=== PATIENT | male | born 1960 | race Caucasian/White ===

== ENCOUNTER 2017-02-25 21:28 | Inpatient (IN) | payer OTHER, MEDICARE ==
[~2017-02-25] VITALS: Ht 167.6 cm; Wt 61.6 kg
[~2017-02-25 21:28] MED LIST: ATOR10TA15 PO; CART120C PO; DILA100C PO; FURO20TA PO; LOSA50TA PO; METF1000 PO; POTA10CA PO
[2017-02-25] MEDS ORDERED: SODIUM CHLORIDE 0.9% FLUSH 10 ML FLUSH IVF PRN (21:45)
[2017-02-25] MEDS ORDERED: methylPREDNISolone SOD SUCC 125 MG/2 ML VIAL IVP ONE (21:45)
[2017-02-25 21:50] VITALS: O2SAT 100
[2017-02-25] MEDS: RESP: ALBUTEROL 2.5 MG/IPRATROPIUM 0.5 MG NEB (SCH) INH ×3 (21:50→22:09)
--- NOTE | 2017-02-25 22:00 | RADRPT ---
EXAM DATE/TIME: 02/25/2017 21:54 [place] COMPARISON: CHEST SINGLE AP, August 07, 2016, 10:53. INDICATIONS : Shortness of breath. MEDICAL HISTORY : Hypertension. Chronic obstructive pulmonary disease. SURGICAL HISTORY : None. ENCOUNTER: Initial ACUITY: 1 day PAIN SCORE: 0/10 LOCATION: Bilateral chest FINDINGS: A single view of the chest demonstrates the lungs to be symmetrically aerated without evidence of mas s, infiltrate or effusion. The cardiomediastinal contours are unremarkable. Osseous structures are intact. CONCLUSION: No acute disease. Colton Vides MD on February 25, 2017 at 21:58 Board Certified Radiologist. This report was verified electronically.
[2017-02-25 22:01] LABS: AUTOMATED NEUTROPHIL # 6.6 TH/MM3 (1.8-7.7); BASOPHIL # 0.4 TH/MM3 (0-0.2); BASOPHIL % 4.4 % (0.0-2.0); EOSINOPHIL # 0.1 TH/MM3 (0-0.4); EOSINOPHIL % 0.9 % (0.0-4.0); HEMO FLAGS DIFF FINAL; LYMPH % 18.1 % (9.0-44.0); LYMPHOCYTE # 1.8 TH/MM3 (1.0-4.8); MEAN CELL VOLUME 93.5 FL (80.0-100.0); MEAN CORPUSCULAR HEMOGLOBIN 29.4 PG (27.0-34.0); MEAN CORPUSCULAR HGB CONC 31.5 % (32.0-36.0); MONO % 7.9 % (0.0-8.0); NEUT % 68.7 % (16.0-70.0); PLATELET COUNT 247 TH/MM3 (150-450); RED BLOOD COUNT 3.85 MIL/MM3 (4.50-5.90); RED CELL DISTRIBUTION WIDTH 12.5 % (11.6-17.2); WHITE BLOOD COUNT 9.7 TH/MM3 (4.0-11.0)
[2017-02-25 22:10] VITALS: O2SAT 98
[2017-02-25 22:15] LABS: CHLORIDE 87 MEQ/L (98-107); SODIUM (NA) 141 MEQ/L (136-145)
--- NOTE | 2017-02-25 22:17 | PD ---
HPI Chief Complaint: Respiratory Symptoms Time Seen by Provider: 21:43 Travel History International Travel<30 days: No Contact w/Intl Traveler<30days: No Traveled to known affect area: No History of Present Illness HPI 56-year-old male complains of wheezing and shortness of breath. Patient has history of COPD and on home O2 4 L nasal cannula. Patient states that he ran out of his oxygen at home today. Patient continues to smoke until 2 days ago. Patient states that he has mild dry cough recently. Patient denies any fever chills. Patient denies any chest pain. Patient denies any fever chills. Patient denies any nausea vomiting diarrhea. Patient has history of diabetes, hypertension, seizure disorder, hyperlipidemia. PFSH Past Medical History Arthritis: No Asthma: No Autoimmune Disease: No Blood Disorders: No Anxiety: No Depression: No Heart Rhythm Problems: No Cancer: No Cardiovascular Problems: No High Cholesterol: No Chemotherapy: No Chest Pain: No Congestive Heart Failure: No COPD: Yes Cerebrovascular Accident: Yes Diabetes: Yes Diminished Hearing: No Endocrine: Yes GERD: Yes Glaucoma: No Genitourinary: No Headaches: No Hepatitis: No Hiatal Hernia: No Hypertension: Yes Immune Disorder: No Kidney Stones: No Musculoskeletal: No Neurologic: Yes (Mental Retardation) Psychiatric: No Reproductive: No Respiratory: Yes (COPD) Immunizations Current: Yes Migraines: No Myocardial Infarction: No Radiation Therapy: No Renal Failure: No Seizures: Yes Sickle Cell Disease: No Sleep Apnea: No Thyroid Disease: No Ulcer: No Past Surgical History Abdominal Surgery: No AICD: No Appendectomy: No Arteriovenous Shunt: No Body Medical Devices: brain clips Cardiac Surgery: No Cholecystectomy: No Ear Surgery: No Endocrine Surgery: No Eye Surgery: No Genitourinary Surgery: No Gynecologic Surgery: No Insulin Pump: No Joint Replacement: No Neurologic Surgery: Yes (BRAIN ANEURYSM 1990) Oral Surgery: Yes (teeth removal) Pacemaker: No Thoracic Surgery: No Other Surgery: Yes (ANEURISM CLIP TO BRAIN 1990) Social History Alcohol Use: No Tobacco Use: Yes Substance Use: Yes (marijuana) Allergies-Medications (Allergen,Severity, Reaction): Coded Allergies: No Known Allergies (Unverified , 02/25/17) Reported Meds & Prescriptions Reported Meds & Active Scripts Active Potassium Chloride ER (Potassium Chloride) 10 Meq Cap 10 Meq PO DAILY Dilantin (Phenytoin Extended) 100 Mg Cap 100 Mg PO Q8HR Furosemide 20 Mg Tab 20 Mg PO DAILY Reported Losartan (Losartan Potassium) 50 Mg Tab 50 Mg PO DAILY Cartia Xt (Diltiazem ER 24 HR) 120 Mg Caper 120 Mg PO DAILY Metformin (Metformin HCl) 1,000 Mg Tab 500 Mg PO BIDPC With meals Atorvastatin (Atorvastatin Calcium) 10 Mg Tab 10 Mg PO HS Review of Systems General / Constitutional: No: Fever Eyes: No: Visual changes HENT: No: Headaches Cardiovascular: No: Chest Pain or Discomfort Respiratory: Positive: Cough, Shortness of Breath, Wheezing Gastrointestinal: No: Abdominal Pain Genitourinary: No: Dysuria Musculoskeletal: No: Pain Skin: No Rash Neurologic: No: Weakness Psychiatric: No: Depression Endocrine: No: Polydipsia Hematologic/Lymphatic: No: Easy Bruising Physical Exam Narrative GENERAL: Well-nourished, well-developed patient. SKIN: Focused skin assessment warm/dry. HEAD: Normocephalic. EYES: No scleral icterus. No injection or drainage. NECK: Supple, trachea midline. No JVD or lymphadenopathy. CARDIOVASCULAR: Regular rate and rhythm without murmurs, gallops, or rubs. RESPIRATORY: Patient has moderate expiratory wheezes bilaterally. Decreased breath sounds bilaterally. Rhonchi at the bases. GASTROINTESTINAL: Abdomen soft, non-tender, nondistended. MUSCULOSKELETAL: No cyanosis, or edema. BACK: Nontender without obvious deformity. No CVA tenderness. Neurologic exam normal. Data Data Last Documented VS Vital Signs Date Time Temp Pulse Resp B/P Pulse Ox O2 Delivery O2 Flow Rate FiO2 02/25/17 22:10 98 Nasal Cannula 3 02/25/17 21:40 26 Orders Complete Blood Count With Diff (02/25/17 21:43) Comprehensive Metabolic Panel (02/25/17 21:43) Act Partial Throm Time (Ptt) (02/25/17 21:43) Prothrombin Time / Inr (Pt) (02/25/17 21:43) Iv Access Insert/Monitor (02/25/17 21:43) Ecg Monitoring (02/25/17 21:43) Oximetry (02/25/17 21:43) Oxygen Administration (02/25/17 21:43) Chest, Single Ap (02/25/17 21:43) Sodium Chloride 0.9% Flush (Ns Flush) (02/25/17 21:45) Methylprednisolone So Succ Inj (Solumedr (02/25/17 21:45) Albuterol-Ipratropium Neb (Duoneb Neb) (02/25/17 21:45) Ceftriaxone Inj (Rocephin Inj) (02/25/17 22:45) Azithromycin (Zithromax) (02/25/17 22:45) Labs Laboratory Tests Test 02/25/17 21:50 White Blood Count 9.7 TH/MM3 Red Blood Count 3.85 MIL/MM3 Hemoglobin 11.3 GM/DL Hematocrit 36.0 % Mean Corpuscular Volume 93.5 FL Mean Corpuscular Hemoglobin 29.4 PG Mean Corpuscular Hemoglobin 31.5 % Concent Red Cell Distribution Width 12.5 % Platelet Count 247 TH/MM3 Mean Platelet Volume 8.3 FL Neutrophils (%) (Auto) 68.7 % Lymphocytes (%) (Auto) 18.1 % Monocytes (%) (Auto) 7.9 % Eosinophils (%) (Auto) 0.9 % Basophils (%) (Auto) 4.4 % Neutrophils # (Auto) 6.6 TH/MM3 Lymphocytes # (Auto) 1.8 TH/MM3 Monocytes # (Auto) 0.8 TH/MM3 Eosinophils # (Auto) 0.1 TH/MM3 Basophils # (Auto) 0.4 TH/MM3 CBC Comment DIFF FINAL Differential Comment Prothrombin Time 10.5 SEC Prothromb Time International 1.0 RATIO Ratio Activated Partial 28.0 SEC Thromboplast Time Sodium Level 141 MEQ/L Potassium Level 4.0 MEQ/L Chloride Level 87 MEQ/L Blood Urea Nitrogen 19 MG/DL Creatinine 1.00 MG/DL Estimat Glomerular Filtration 77 ML/MIN Rate Random Glucose 194 MG/DL Calcium Level 9.3 MG/DL Total Bilirubin 0.2 MG/DL Aspartate Amino Transf 15 U/L (AST/SGOT) Alanine Aminotransferase 17 U/L (ALT/SGPT) Alkaline Phosphatase 117 U/L Total Protein 8.0 GM/DL Albumin 2.9 GM/DL [facility] Medical Decision Making Medical Screen Exam Complete: Yes Emergency Medical Condition: Yes Differential Diagnosis Differential diagnosis including acute exacerbation COPD, bronchitis, pneumonia , PE, pneumothorax. Narrative Course 56-year-old male with shortness of breath. History of COPD. Albuterol with Atrovent unit dose treatment 3. Solu-Medrol 125 mg IV. Rocephin 1 g IV. Zithromax 500 mg by mouth. Diagnosis Primary Impression: COPD with acute exacerbation Bert Case MD Feb 25, 2017 22:17
[2017-02-25 22:19] LABS: BLOOD UREA NITROGEN 19 MG/DL (7-18)
[2017-02-25 22:21] LABS: ALT (GPT) 17 U/L (12-78)
[2017-02-25 22:22] LABS: AST (GOT) 15 U/L (15-37); GLOMERULAR FILTRATION RATE 77 ML/MIN (>89)
[2017-02-25 22:24] LABS: ALKALINE PHOSPHATASE 117 U/L (45-117); PROTHROMBIN TIME - PATIENT 10.5 SEC (9.8-11.6)
[2017-02-25 22:27] LABS: TOTAL BILIRUBIN ADULT 0.2 MG/DL (0.2-1.0)
[2017-02-25] MEDS ORDERED: SENNOSIDES 8.6 MG TAB PO PRN (22:45)
[2017-02-25] MEDS ORDERED: RESP: ALBUTEROL 2.5 MG/3 ML NEB (PRN) INH (22:45)
[2017-02-25] MEDS ORDERED: BISACODYL 10 MG SUPP RECTAL PRN (22:45)
[2017-02-25] MEDS ORDERED: SODIUM CHLORIDE 0.9% FLUSH 10 ML FLUSH IV FLUSH PRN (22:45)
[2017-02-25] MEDS ORDERED: NALOXONE HCL 0.4 MG/ML AMP IV PRN (22:45)
[2017-02-25] MEDS ORDERED: ACETAMINOPHEN 325 MG TAB PO PRN (22:45)
[2017-02-25] MEDS ORDERED: LACTULOSE SYRUP 20 GM/30 ML CUP PO PRN (22:45)
[2017-02-25] MEDS ORDERED: ONDANSETRON HCL 4 MG/2 ML VIAL IVP PRN (22:45)
[2017-02-25] MEDS ORDERED: cefTRIAXone INJ 1,000 MG in SODIUM CHLORIDE 0.9% INJ 100 ML IV ONE (22:45)
[2017-02-25] MEDS ORDERED: AZITHROMYCIN 250 MG TAB PO ONE (22:45)
[2017-02-25] MEDS ORDERED: MAGNESIUM HYDROXIDE SUSP 30 ML CUP PO PRN (22:45)
[2017-02-25 22:46] LABS: ANION GAP 1 MEQ/L (5-15); BICARBONATE 52.7 MEQ/L (21.0-32.0)
[2017-02-25 23:11] VITALS: BP 160/79; PULSE 103; RESP 18; O2SAT 96
[2017-02-26] VITALS (12 sets, daily range): BP systolic 154–186; BP diastolic 73–99; PULSE 88–104; RESP 20–31; TEMP 98–98.7; O2SAT 90–98
[2017-02-26] MEDS: methylPREDNISolone SOD SUCC 125 MG/2 ML VIAL IVP SCH ×3 (03:53→21:02)
[2017-02-26] MEDS: RESP: ALBUTEROL 2.5 MG/IPRATROPIUM 0.5 MG NEB (SCH) INH ×4 (03:55→21:37)
[2017-02-26] MEDS ORDERED: cloNIDine HCL 0.1 MG TAB PO ONE (05:00)
[2017-02-26 06:08] LABS: AUTOMATED NEUTROPHIL # 6.5 TH/MM3 (1.8-7.7); BASOPHIL % 0.1 % (0.0-2.0); EOSINOPHIL % 0.1 % (0.0-4.0); HEMATOCRIT 33.9 % (39.0-51.0); HEMO FLAGS DIFF FINAL; LYMPH % 9.9 % (9.0-44.0); LYMPHOCYTE # 0.7 TH/MM3 (1.0-4.8); MEAN CELL VOLUME 93.1 FL (80.0-100.0); MEAN CORPUSCULAR HEMOGLOBIN 29.9 PG (27.0-34.0); MEAN CORPUSCULAR HGB CONC 32.1 % (32.0-36.0); MONO % 0.7 % (0.0-8.0); NEUT % 89.2 % (16.0-70.0); PLATELET COUNT 233 TH/MM3 (150-450); RED BLOOD COUNT 3.64 MIL/MM3 (4.50-5.90); RED CELL DISTRIBUTION WIDTH 12.4 % (11.6-17.2); WHITE BLOOD COUNT 7.3 TH/MM3 (4.0-11.0)
[2017-02-26 06:20] LABS: POTASSIUM 3.9 MEQ/L (3.5-5.1)
[2017-02-26 06:47] LABS: BICARBONATE 51.6 MEQ/L (21.0-32.0)
[2017-02-26] MEDS: SODIUM CHLORIDE 0.9% FLUSH 10 ML FLUSH IV FLUSH SCH ×2 (10:22→21:02)
[2017-02-26] MEDS: DOCUSATE SODIUM 50 MG/SENNA 8.6 MG TAB PO SCH ×2 (10:22→21:03)
--- NOTE | 2017-02-26 11:40 | HHI.HP ---
[facility] Service [facility] Primary Care Physician Non-Staff Admission Diagnosis acute exacerbation COPD Diagnoses: (1) Acute on chronic respiratory failure with hypoxia and hypercapnia Diagnosis: Principal (2) Acute exacerbation of chronic obstructive pulmonary disease (COPD) Diagnosis: Principal (3) Diabetes mellitus Diagnosis: Secondary (4) Hypertension Diagnosis: Secondary Chief Complaint: Wheeze and shortness of breath Travel History International Travel<30 Days: No Contact w/Intl Traveler <30 Da: No Traveled to Known Affected Are: No History of Present Illness Written by Amor Gallegos, acting as scribe for Dr. Albrecht on 02/26/17 at 13: 41. This note was transcribed by scribe Amor AKHTAR. I, Dr. Sofia Albrecht personally performed the history, physical exam, and medical decision making; and confirmed the accuracy of the information in the transcribed note. Authenticated by Dr. Sofia Albrecht on 02/26/17 at 13:41. 56-year-old with known history of chronic respiratory failure oxygen dependent, chronic tobacco use, hypertension, developed mental delay, gouty arthritis who presented to hospital with shortness of breath and dyspnea. Patient was able to get majority information, however on details he is very vague. According to him and is been 2 months that he is started back smoking again and when he started back smoking he stopped using his oxygen. He states that he does get intermittent shortness of breath, dyspnea, wheeze. Has been progressively getting worse over the last week. He states that he does have a suspender maker however he does not know his name. He states he does have a nebulizer machine that he has been using on a regular basis. Patient was brought to the emergency department for evaluation. Patient was found to have severe COPD and hypoxia. Patient was recommended admission for management. At the time evaluating the patient he states that he is much better. He wants to go home. He states that he does have oxygen at home. Review of Systems Respiratory: COMPLAINS OF: Wheezing, Shortness of breath Except as stated in HPI: all other systems reviewed are Neg Past Family Social History Past Medical History Chronic hypoxic, hypercapnic respiratory failure, oxygen dependent Diabetes mellitus type II Hypertension Chronic obstructive pulmonary disease Chronic tobacco use History of seizures History of developmental delay History of CVA Gastroesophageal reflux Past Surgical History Brain aneurysm clipping 1990 Tooth extraction Sinus surgery Craniotomy Reported Medications Reported Meds & Active Scripts Active Potassium Chloride ER (Potassium Chloride) 10 Meq Cap 10 Meq PO DAILY Dilantin (Phenytoin Extended) 100 Mg Cap 100 Mg PO Q8HR Furosemide 20 Mg Tab 20 Mg PO DAILY Reported Losartan (Losartan Potassium) 50 Mg Tab 50 Mg PO DAILY Cartia Xt (Diltiazem ER 24 HR) 120 Mg Caper 120 Mg PO DAILY Metformin (Metformin HCl) 1,000 Mg Tab 500 Mg PO BIDPC With meals Atorvastatin (Atorvastatin Calcium) 10 Mg Tab 10 Mg PO HS Allergies: Coded Allergies: No Known Allergies (Unverified , 02/25/17) Family History Reviewed is significant for father having cancer Social History Patient states that he smoked a pack a cigarettes a day. He is been smoking since he was 14 years old with intermittent times of discontinuation. Patient denies any alcohol use. He states he does smoke marijuana daily Physical Exam Vital Signs Vital Signs Date Time Temp Pulse Resp B/P Pulse Ox O2 Delivery O2 Flow Rate FiO2 02/26/17 10:00 94 28 157/79 93 02/26/17 09:59 93 Nasal Cannula 3.00 02/26/17 08:00 94 02/26/17 08:00 98.1 88 26 168/99 96 02/26/17 06:00 92 26 181/92 94 02/26/17 03:52 98.7 94 20 186/87 95 02/26/17 01:45 97 Nasal Cannula 3.00 02/26/17 01:43 98 30 173/92 98 02/26/17 01:43 98 02/26/17 01:35 98 02/26/17 01:35 98.6 98 24 179/98 97 02/26/17 01:01 98.3 105 18 154/73 97 Nasal Cannula 2 02/25/17 23:11 103 18 160/79 96 Nasal Cannula 4 02/25/17 22:10 98 Nasal Cannula 3 02/25/17 21:50 100 Nasal Cannula 3.00 02/25/17 21:50 100 Nasal Cannula 3.00 02/25/17 21:40 26 02/25/17 21:40 96 Nasal Cannula 3 Physical Exam GENERAL: Well-developed, well-nourished, in no acute distress. alert and orientated HEENT: Head is normocephalic without any lesions or masses noted. Facial features are symmetric. Eyes: Pupils equal round reactive to light. Extraocular muscles are intact. Conjunctivae were clear. Oropharyngeal: Pharynx without any erythema edema. Tongue is midline without deviation. Buccal mucosa is moist without any masses or lesions NECK: Supple without any masses. Trachea midline no deviation. No JVD, no bruits are appreciated CARDIAC: Regular rhythm, regular rate. S1/S2 are heard. No murmurs gallops or rubs. LUNGS: Diminished breath sounds noted throughout. Fine crackles noted. No wheeze, rhonchi. No use of accessory muscles on inspiration or expiration. ABDOMEN: Soft, nontender. Nondistended. Bowel sounds heard in all 4 quadrants. No organomegaly or masses. Negative rebound, negative guarding EXTREMITIES: No edema, pulses are equal bilaterally. No cyanosis or clubbing NEUROLOGY: Mood and affect appear appropriate. Cranial nerves II through XII grossly intact. Muscle strength 5/5 in upper and lower extremities bilaterally. Deep tendon reflexes are 2+ in upper and lower extremities bilaterally. Laboratory Laboratory Tests Test 02/25/17 02/26/17 21:50 04:17 White Blood Count 9.7 7.3 Red Blood Count 3.85 3.64 Hemoglobin 11.3 10.9 Hematocrit 36.0 33.9 Mean Corpuscular Volume 93.5 93.1 Mean Corpuscular Hemoglobin 29.4 29.9 Mean Corpuscular Hemoglobin 31.5 32.1 Concent Red Cell Distribution Width 12.5 12.4 Platelet Count 247 233 Mean Platelet Volume 8.3 8.7 Neutrophils (%) (Auto) 68.7 89.2 Lymphocytes (%) (Auto) 18.1 9.9 Monocytes (%) (Auto) 7.9 0.7 Eosinophils (%) (Auto) 0.9 0.1 Basophils (%) (Auto) 4.4 0.1 Neutrophils # (Auto) 6.6 6.5 Lymphocytes # (Auto) 1.8 0.7 Monocytes # (Auto) 0.8 0.1 Eosinophils # (Auto) 0.1 0.0 Basophils # (Auto) 0.4 0.0 CBC Comment DIFF FINAL DIFF FINAL Differential Comment Prothrombin Time 10.5 Prothromb Time International 1.0 Ratio Activated Partial 28.0 Thromboplast Time Sodium Level 141 139 Potassium Level 4.0 3.9 Chloride Level 87 86 Carbon Dioxide Level 52.7 51.6 Anion Gap 1 1 Blood Urea Nitrogen 19 19 Creatinine 1.00 0.88 Estimat Glomerular Filtration 77 89 Rate Random Glucose 194 293 Calcium Level 9.3 9.2 Total Bilirubin 0.2 Aspartate Amino Transf 15 (AST/SGOT) Alanine Aminotransferase 17 (ALT/SGPT) Alkaline Phosphatase 117 Total Protein 8.0 Albumin 2.9 Result Diagram: 02/26/1741602/26/17416 Imaging Last Impressions Chest X-Ray 02/25/172142 Signed Impressions: Service Date/Time: Saturday, February 25, 2017 21:54 - CONCLUSION: No acute disease. Colton Vides MD Assessment and Plan Assessment and Plan Acute on chronic hypoxic, hypercapnic respiratory failure with oxygen dependency Secondary to noncompliance with oxygen, chronic tobacco use Continue O2 supplementation to maintain O2 sats greater 92% Continue Solu-Medrol Continue nebulizer treatments Continue incentive spirometry/Acapella Continue Zithromax Chronic tobacco use Patient counseled on cessation Nicotine patch Hypertension, accelerated Resume home medications Clonidine/Apresoline as needed Hyperlipidemia Continue home medications Diabetes Accu-Cheks with sliding scale insulin DVT prevention Sequential compression devices Discussed Condition With patient, nurse Physician Certification 2 Midnight Certification Type: Admission for Inpatient Services Order for Inpatient Services The services are ordered in accordance with Medicare regulations or non- Medicare payer requirements, as applicable. In the case of services not specified as inpatient-only, they are appropriately provided as inpatient services in accordance with the 2-midnight benchmark. Estimated LOS (days): 2 days is the estimated time the patient will need to remain in the hospital, assuming treatment plan goals are met and no additional complications. Post-Hospital Plan: Not yet determined Problem Qualifiers (1) Hypertension: Qualified Code: I10 - Hypertension, unspecified type Amor Gallegos Feb 26, 2017 11:40 Sofia Albrecht MD Feb 26, 2017 15:07
[2017-02-26] MEDS ORDERED: cloNIDine HCL 0.1 MG TAB PO PRN (13:45)
[2017-02-26] MEDS ORDERED: GLUCAGON 1 MG/ML VIAL OTHER PRN (13:45)
[2017-02-26] MEDS ORDERED: DEXTROSE 50% IN WATER 50 ML VIAL(D50) IV PRN (13:45)
[2017-02-26] MEDS ORDERED: hydrALAZINE HCL 20 MG/ML VIAL IV PUSH PRN (13:45)
[2017-02-26] MEDS: PHENYTOIN SODIUM 100 MG CAP PO SCH ×2 (14:26→21:03)
[2017-02-26] MEDS: LOSARTAN 50 MG TAB PO SCH (14:26)
[2017-02-26] MEDS: DILTIAZEM-CD 120 MG CAP ER PO SCH (14:26)
[2017-02-26] MEDS: NICOTINE 21 MG/24 HR PATCH T-DERMAL SCH (14:26)
[2017-02-26] MEDS: FUROSEMIDE 20 MG TAB PO SCH (14:26)
[2017-02-26] MEDS: POTASSIUM CHLORIDE 10 MEQ CAP PO SCH (15:18)
[2017-02-26] MEDS: INSULIN ASPART SUPPLEMENTAL SCALE SQ SCH ×2 (15:27→21:20)
[2017-02-26] MEDS ORDERED: INSULIN ASPART 1,000 UNITS/10 ML VIAL SQ ONE (17:30)
[2017-02-26] MEDS ORDERED: ATORVASTATIN 10 MG TAB PO SCH (21:00)
[2017-02-26] MEDS ORDERED: AZITHROMYCIN INJ 500 MG in SODIUM CHLOR 0.9% 250 ML INJ 250 ML IV SCH (22:00)
[2017-02-27] VITALS: BP 145/74; PULSE 104; RESP 24; TEMP 98.2; O2SAT 96
[2017-02-27] MEDS: RESP: ALBUTEROL 2.5 MG/IPRATROPIUM 0.5 MG NEB (SCH) INH ×2 (03:40→08:58)
[2017-02-27 04:50] VITALS: BP 182/91; PULSE 96; RESP 25; TEMP 98.4; O2SAT 97
[2017-02-27 04:58] VITALS: BP 163/83; PULSE 96; RESP 24; O2SAT 94
[2017-02-27] MEDS: PHENYTOIN SODIUM 100 MG CAP PO SCH (05:01)
[2017-02-27] MEDS: INSULIN ASPART SUPPLEMENTAL SCALE SQ SCH ×2 (07:00→07:50)
[2017-02-27 08:00] VITALS: BP 138/73; PULSE 92; RESP 30; TEMP 98.5; O2SAT 97
[2017-02-27 08:59] VITALS: O2SAT 98
[2017-02-27] MEDS ORDERED: REMOVE OLD PATCH T-DERMAL SCH (09:00)
[2017-02-27] MEDS: LOSARTAN 50 MG TAB PO SCH (09:39)
[2017-02-27] MEDS: FUROSEMIDE 20 MG TAB PO SCH (09:39)
[2017-02-27] MEDS: DILTIAZEM-CD 120 MG CAP ER PO SCH (09:39)
[2017-02-27] MEDS: POTASSIUM CHLORIDE 10 MEQ CAP PO SCH (09:39)
[2017-02-27] MEDS: SODIUM CHLORIDE 0.9% FLUSH 10 ML FLUSH IV FLUSH SCH (09:39)
[2017-02-27] MEDS: DOCUSATE SODIUM 50 MG/SENNA 8.6 MG TAB PO SCH (09:39)
[2017-02-27] MEDS: NICOTINE 21 MG/24 HR PATCH T-DERMAL SCH (09:40)
[2017-02-27] MEDS: methylPREDNISolone SOD SUCC 125 MG/2 ML VIAL IVP SCH (09:45)
[2017-02-27] MEDS ORDERED: VENTAER INH (10:24)
[2017-02-27] MEDS ORDERED: PRED20 PO (10:24)
[2017-02-27] MEDS ORDERED: ALBU0.08 NEB (10:24)
[2017-02-27] MEDS ORDERED: INSPIREASE DRUG1 EA (10:24)
[2017-02-27] MEDS ORDERED: IPRASOL INH ×2 (10:24)
[2017-02-27] MEDS ORDERED: FORM20NE INH (10:24)
[2017-02-27] MEDS ORDERED: NICO21DI6 T-DERMAL (10:24)
[2017-02-27] MEDS ORDERED: IPRA17I INH (10:24)
[2017-02-27] MEDS ORDERED: NEBULIZER1 MI1 (10:24)
[2017-02-27] MEDS ORDERED: PULM180I INH (10:29)
--- NOTE | 2017-02-27 10:29 | HHI.DS ---
Discharge Summary Admission Date Feb 25, 2017 at 22:42 Discharge Date: Feb 27, 2017 Admitting Diagnosis acute exacerbation COPD (1) Acute on chronic respiratory failure with hypoxia and hypercapnia ICD Code: J96.21 Diagnosis: Principal (2) Acute exacerbation of chronic obstructive pulmonary disease (COPD) ICD Code: J44.1 Diagnosis: Principal (3) Diabetes mellitus ICD Code: 250.00 Diagnosis: Secondary (4) Hypertension ICD Code: I10 Diagnosis: Secondary Procedures none Brief History - From Admission Written by Amor Gallegos, acting as scribe for Dr. Albrecht on 02/26/17 at 13: 41. This note was transcribed by scribe Amor AKHTAR. I, Dr. Sofia Albrecht personally performed the history, physical exam, and medical decision making; and confirmed the accuracy of the information in the transcribed note. Authenticated by Dr. Sofia Albrecht on 02/26/17 at 13:41. 56-year-old with known history of chronic respiratory failure oxygen dependent, chronic tobacco use, hypertension, developed mental delay, gouty arthritis who presented to hospital with shortness of breath and dyspnea. Patient was able to get majority information, however on details he is very vague. According to him and is been 2 months that he is started back smoking again and when he started back smoking he stopped using his oxygen. He states that he does get intermittent shortness of breath, dyspnea, wheeze. Has been progressively getting worse over the last week. He states that he does have a mold setter however he does not know his name. He states he does have a nebulizer machine that he has been using on a regular basis. Patient was brought to the emergency department for evaluation. Patient was found to have severe COPD and hypoxia. Patient was recommended admission for management. At the time evaluating the patient he states that he is much better. He wants to go home. He states that he does have oxygen at home. CBC/BMP: 02/26/17 0417 02/26/17 0417 Significant Findings Laboratory Tests Test 02/25/17 02/26/17 21:50 04:17 Red Blood Count 3.85 MIL/MM3 3.64 MIL/MM3 (4.50-5.90) (4.50-5.90) Hemoglobin 11.3 GM/DL 10.9 GM/DL (13.0-17.0) (13.0-17.0) Hematocrit 36.0 % 33.9 % (39.0-51.0) (39.0-51.0) Mean Corpuscular Hemoglobin 31.5 % Concent (32.0-36.0) Basophils (%) (Auto) 4.4 % (0.0-2.0) Basophils # (Auto) 0.4 TH/MM3 (0-0.2) Chloride Level 87 MEQ/L 86 MEQ/L (98-107) (98-107) Carbon Dioxide Level 52.7 MEQ/L 51.6 MEQ/L (21.0-32.0) (21.0-32.0) Anion Gap 1 MEQ/L (5-15) 1 MEQ/L (5-15) Blood Urea Nitrogen 19 MG/DL (7-18) 19 MG/DL (7-18) Estimat Glomerular Filtration 77 ML/MIN (>89) Rate Random Glucose 194 MG/DL 293 MG/DL (74-106) (74-106) Albumin 2.9 GM/DL (3.4-5.0) Neutrophils (%) (Auto) 89.2 % (16.0-70.0) Lymphocytes # (Auto) 0.7 TH/MM3 (1.0-4.8) Imaging Last Impressions Chest X-Ray 02/25/17 7731 Signed Impressions: Service Date/Time: Saturday, February 25, 2017 21:54 - CONCLUSION: No acute disease. Colton Vides MD PE at Discharge GENERAL: Well-developed, well-nourished, in no acute distress. alert and orientated CARDIAC: Regular rhythm, regular rate. S1/S2 are heard. No murmurs gallops or rubs. LUNGS: Diminished breath sounds noted throughout. Fine crackles noted. No wheeze, rhonchi. No use of accessory muscles on inspiration or expiration. ABDOMEN: Soft, nontender. Nondistended. Bowel sounds heard in all 4 quadrants. No organomegaly or masses. Negative rebound, negative guarding EXTREMITIES: No edema, pulses are equal bilaterally. No cyanosis or clubbing NEUROLOGY: Mood and affect appear appropriate. Cranial nerves II through XII grossly intact. Muscle strength 5/5 in upper and lower extremities bilaterally. Deep tendon reflexes are 2+ in upper and lower extremities bilaterally. Pt update on day of discharge Feels improved. Says she has O2 at home. He is nor wheezing. Denies chest pain or sob. Ambulating without problems. Eating well. No cough, fever or chills. No n/v/d/c. Hospital Course Acute on chronic hypoxic, hypercapnic respiratory failure with oxygen dependency Secondary to noncompliance with oxygen, chronic tobacco use Continue O2 supplementation to maintain O2 sats greater 92% Continue Solu-Medrol Continue nebulizer treatments Continue incentive spirometry/Acapella Continue Zithromax Chronic tobacco use Patient counseled on cessation Nicotine patch Hypertension, accelerated Resume home medications Clonidine/Apresoline as needed Hyperlipidemia Continue home medications Diabetes mellitus type 2 Accu-Cheks with sliding scale insulin DVT prevention Sequential compression devices Patient improved. Patient has O2 at home however he is noncompliant, says he started smoking again and did not use O2. Discusse dwith the patient at length quitting tobacco and O2 use at home also associated with decrease mortality rate. Patient expressed understanding. Patient to follow up as OP with PCP and consultants. Advice compliance with meds , ff appointments, O2 use, quitting smoking. Pt Condition on Discharge: Stable Discharge Disposition: Disch w/ Home Health Serv Discharge Time: > 30 minutes Discharge Instructions DIET: Follow Instructions for: Heart Healthy Diet, Diabetic Diet Activities you can perform: Regular-No Restrictions Follow up Referrals: PCP Follow-up - 3-5 Days Pulmonology - 1 Week SNF/[facility]/ with [facility] Home New Medications: Albuterol 18 GM Inh (Ventolin Hfa 18 GM Inh) 90 Mcg/Act Aer 2 PUFF INH Q4H PRN SHORTNESS OF BREATH #1 Ref 0 INHALER Albuterol Neb (Albuterol Neb) 2.5 Mg/3 Ml Neb 2.5 MG NEB Q4HR NEB PRN SHORTNESS OF BREATH #60 Ref 0 NEBULE Budesonide Powder Inh (Pulmicort Flexhaler) 180 Mcg/Act Inhp 180 MCG INH Q12HR Asthma Management #1 Ref 0 INHALER Formoterol Neb (Perforomist Neb) 20 Mcg/2 Ml Neb 1 NEBULE INH BID COPD #60 Ref 0 NEBULE Ipratropium HFA 12.9 GM Inh (Atrovent HFA 12.9 GM Inh) 17 Mcg/Act Aer 2 PUFF INH Q6HR PRN SHORTNESS OF BREATH #1 Ref 0 INHALER Ipratropium-Albuterol Neb (Duoneb) 0.5-2.5 Mg/3 Ml Neb 1 NEBULE INH Q4HR NEB Breathing Treatment #180 Ref 0 NEBULE Nebulizer (Nebulizer) 1 Mis Mis 1 EA .ROUTE DIRECTED Breathing Treatment #1 Ref 0 EA Nicotine Patch (Nicoderm CQ Patch) 21 Mg/24 Hr Patch 21 MG T-DERMAL DAILY Smoking Cessation #30 Ref 0 PATCH Prednisone (Prednisone) 20 Mg Tab 20 MG PO DIRECTED 40 MG twice a day x 3 days, then 20 MG daily x 3 days, then 10 MG daily x 3 days Inflammation #11 Ref 0 TAB Spacer/Device For Mdi (Inspirease Drug Delivery) 1 Ea Mis 1 EA .ROUTE DIRECTED #1 Ref 0 EA Continued Medications: Atorvastatin (Atorvastatin) 10 Mg Tab 10 MG PO HS Cholesterol Management #30 Ref 0 TAB Diltiazem ER 24 HR (Cartia Xt) 120 Mg Caper 120 MG PO DAILY #30 Ref 0 CAP Furosemide (Furosemide) 20 Mg Tab 20 MG PO DAILY chf #30 TAB Losartan (Losartan) 50 Mg Tab 50 MG PO DAILY Blood Pressure Management #30 Ref 0 TAB Metformin (Metformin) 1,000 Mg Tab 500 MG PO BIDPC With meals Blood Sugar Management #60 Ref 0 TAB Phenytoin Extended (Dilantin) 100 Mg Cap 100 MG PO Q8HR seiz #90 CAP Potassium Chloride ER (Potassium Chloride ER) 10 Meq Cap 10 MEQ PO DAILY Electrolyte Replacement #30 Ref 0 CAP Sofia Albrecht MD Feb 27, 2017 10:29
--- NOTE | 2017-02-27 10:32 | HHI.FF ---
Face to Face Verification Diagnosis: (1) Diabetes mellitus type 2, controlled (2) Respiratory failure with hypoxia and hypercapnia (3) Tobacco use disorder (4) COPD (chronic obstructive pulmonary disease) (5) Acute exacerbation of chronic obstructive pulmonary disease (COPD) (6) Acute on chronic respiratory failure with hypoxia and hypercapnia Physical Therapy Order: Evaluate and Treat Home Health Nursing Order: Medical education Signs/symptoms of disease process Diabetic education Oxygen administration education Medication education-adverse effect Nursing assessment with vital signs I have seen patient Miguel Pimentel Jr aPwel on 02/27/17. My clinical findings support the need for the requested home health care services because: Ltd mobility - disease progression Patient has SOB I certify that my clinical findings support that this patient is homebound because: Post-op weakness Hx COPD- exertion dyspnea/weakness Sofia Albrecht MD Feb 27, 2017 10:32
[2017-02-27 12:00] VITALS: BP 168/77; PULSE 98; RESP 33; O2SAT 93
[2017-02-27] MEDS ORDERED: RESP: ALBUTEROL 2.5 MG/IPRATROPIUM 0.5 MG NEB (SCH) INH (12:00)
[2017-02-27] MEDS ORDERED: methylPREDNISolone SOD SUCC 40 MG/1 ML VIAL IV SCH (14:00)
[2017-02-27 18:26] LABS: HEMOGLOBIN A1a 1.3 %; HEMOGLOBIN A1b 2.5 %; HEMOGLOBIN Ao 81.5 %; HEMOGLOBIN LA1C 2.7 %; HEMOGLOBIN P3 4.7 %
[2017-02-28] MEDS ORDERED: POTASSIUM CHLORIDE 10 MEQ CONTROLLED RELEASE TAB PO SCH (09:00)
== END 2017-02-27 12:30 | disposition home health service (06) | DRG 190 ==
LOC: PHED 21:28 → PHEDA 22:42 → PHICU 02-26 01:18
PROVIDERS: ADMIT Hospitalist; ATTEND Hospitalist
DX: J44.1 Chronic obstructive pulmonary disease with (acute) exacerbation (principal); J96.21 Acute and chronic respiratory failure with hypoxia; R56.9 Unspecified convulsions; J96.22 Acute and chronic respiratory failure with hypercapnia; Z99.81 Dependence on supplemental oxygen; E11.9 Type 2 diabetes mellitus without complications; I10 Essential (primary) hypertension; M10.9 Gout, unspecified; R62.50 Unspecified lack of expected normal physiological development in childhood; F17.210 Nicotine dependence, cigarettes, uncomplicated; Z86.73 Personal history of transient ischemic attack (TIA), and cerebral infarction without residual deficits; K21.9 Gastro-esophageal reflux disease without esophagitis; Z79.84 Long term (current) use of oral hypoglycemic drugs; F12.90 Cannabis use, unspecified, uncomplicated; Z91.19 Patient's noncompliance with other medical treatment and regimen; E78.5 Hyperlipidemia, unspecified
CPT/HCPCS: 71010; 80048; 80053; 82948; 83036; 85025; 85610; 85730; 94150; 94640; 94664; 94667; 94668; 96374; J0456; J0696; J1815; J2930; J7050

== ENCOUNTER 2017-05-01 19:02 | Inpatient (IN) | payer OTHER, MEDICARE ==
[2017-05-01] VITALS (8 sets, daily range): BP systolic 88–139; BP diastolic 4–66; PULSE 85–94; RESP 24; TEMP 98.2; O2SAT 90–97
[~2017-05-01] VITALS: Ht 167.6 cm; Wt 63.4 kg
[~2017-05-01 19:02] MED LIST changes: +ALBU0.08 NEB; +FORM20NE INH; +INSPIREASE DRUG1 EA; +IPRA17I INH; +IPRASOL INH; +NEBULIZER1 MI1; +NICO21DI6 T-DERMAL; +PRED20 PO; +PULM180I INH; +VENTAER INH
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
[2017-05-01] MEDS ORDERED: SODIUM CHLORIDE 0.9% FLUSH 10 ML FLUSH IVF PRN (19:45)
[2017-05-01 20:08] LABS: AUTOMATED NEUTROPHIL # 4.1 TH/MM3 (1.8-7.7); BASOPHIL # 0.1 TH/MM3 (0-0.2); EOSINOPHIL # 0.1 TH/MM3 (0-0.4); EOSINOPHIL % 1.5 % (0.0-4.0); HEMATOCRIT 32.2 % (39.0-51.0); HEMO FLAGS DIFF FINAL; LYMPH % 23.9 % (9.0-44.0); LYMPHOCYTE # 1.5 TH/MM3 (1.0-4.8); MEAN CELL VOLUME 91.9 FL (80.0-100.0); MEAN CORPUSCULAR HEMOGLOBIN 28.6 PG (27.0-34.0); MEAN CORPUSCULAR HGB CONC 31.2 % (32.0-36.0); MONO % 9.4 % (0.0-8.0); NEUT % 64.2 % (16.0-70.0); PLATELET COUNT 294 TH/MM3 (150-450); RED CELL DISTRIBUTION WIDTH 13.3 % (11.6-17.2); WHITE BLOOD COUNT 6.4 TH/MM3 (4.0-11.0)
--- NOTE | 2017-05-01 20:15 | RADRPT ---
EXAM DATE/TIME: 05/01/2017 19:50 [facility] COMPARISON: CHEST SINGLE AP, February 25, 2017, 21:54. INDICATIONS : Short of breath for a few days. MEDICAL HISTORY : Chronic obstructive pulmonary disease. Aneurysm, intracranial. Seizures. Hypertension. SURGICAL HISTORY : Craniotomy. ENCOUNTER: Initial ACUITY: 2 days PAIN SCORE: 0/10 LOCATION: Bilateral chest FINDINGS: A single view of the chest demonstrates the lungs to be symmetrically aerated without evidence of mas s, infiltrate or effusion. The cardiomediastinal contours are unremarkable. Osseous structures are intact. CONCLUSION: No evidence of acute cardiopulmonary disease. Miguel Porras MD on May 01, 2017 at 20:13 Board Certified Radiologist. This report was verified electronically.
[2017-05-01 20:17] LABS: CHLORIDE 95 MEQ/L (98-107); POTASSIUM 3.8 MEQ/L (3.5-5.1); SODIUM (NA) 137 MEQ/L (136-145)
[2017-05-01 20:20] LABS: ANION GAP 6 MEQ/L (5-15); BICARBONATE 36.4 MEQ/L (21.0-32.0); MAGNESIUM 2.1 MG/DL (1.5-2.5)
[2017-05-01 20:21] LABS: BLOOD UREA NITROGEN 39 MG/DL (7-18)
[2017-05-01 20:22] LABS: APTT (PATIENT) 28.7 SEC (24.3-30.1); PROTHROMBIN TIME - PATIENT 10.5 SEC (9.8-11.6)
[2017-05-01 20:23] LABS: ALT (GPT) 15 U/L (12-78); AST (GOT) 11 U/L (15-37)
[2017-05-01 20:24] LABS: GLOMERULAR FILTRATION RATE 42 ML/MIN (>89)
[2017-05-01 20:25] LABS: TOTAL BILIRUBIN ADULT 0.3 MG/DL (0.2-1.0)
[2017-05-01 20:26] LABS: ALKALINE PHOSPHATASE 110 U/L (45-117)
[2017-05-01] MEDS ORDERED: SODIUM CHLORID 0.9% 500 ML INJ 500 ML IV ONE (20:45)
[2017-05-01 20:51] LABS: CREATINE KINASE 99 U/L (39-308)
[2017-05-01] MEDS ORDERED: IODIXANOL 320 MG/ML 10 ML VIAL (for Rad CT) IV ONE (21:05)
--- NOTE | 2017-05-01 21:23 | RADRPT ---
EXAM DATE/TIME: 05/01/2017 20:47 [facility] COMPARISON: CT THORAX W/O CONTRAST, December 21, 2015, 20:55. INDICATIONS : Shortness of breath today. IV CONTRAST: 50 cc Visipaque (iodixanol) IV RADIATION DOSE: 9.82 CTDIvol (mGy) MEDICAL HISTORY : Stroke. Chronic obstructive pulmonary disease. SURGICAL HISTORY : Craniotomy. ENCOUNTER: Initial ACUITY: 1 day PAIN SCALE: 0/10 LOCATION: Bilateral chest TECHNIQUE: Volumetric scanning of the chest was performed using a pulmonary embolism protocol MIP images were re constructed. Using automated exposure control and adjustment of the mA and/or kV according to patien t size, radiation dose was kept as low as reasonably achievable to obtain optimal diagnostic quality images. DICOM format image data is available electronically for review and comparison. Follow-up recommendations for detected pulmonary nodules are based at a minimum on nodule size and pa tient risk factors according to Fleischner Society Guidelines. FINDINGS: PULMONARY ARTERIES: No filling defects are seen in the pulmonary arteries through the segmental level. LUNGS: There is mild emphysema and mild scarring of the apices and bases. No acute pneumonia demonstrated. N o pleural effusion or pneumothorax. PLEURAE: Chronic, slightly nodular pleural thickening of the right apex. MEDIASTINUM: There is good visualization of the great vessels of the middle mediastinum. No evidence of mediastin al or hilar adenopathy/mass. MUSCULOSKELETAL: Within normal limits for patient age. MISCELLANEOUS: The visualized upper abdominal organs demonstrate no acute abnormality. CONCLUSION: 1. No pulmonary embolus or other acute abnormality. 2. Mild emphysema and scarring. Miguel Porras MD on May 01, 2017 at 21:21 Board Certified Radiologist. This report was verified electronically.
[2017-05-01] MEDS ORDERED: MAGNESIUM HYDROXIDE SUSP 30 ML CUP PO PRN (22:00)
[2017-05-01] MEDS ORDERED: SENNOSIDES 8.6 MG TAB PO PRN (22:00)
[2017-05-01] MEDS: RESP: ALBUTEROL 2.5 MG/IPRATROPIUM 0.5 MG NEB (SCH) INH (22:00)
[2017-05-01] MEDS ORDERED: ONDANSETRON HCL 4 MG/2 ML VIAL IV PUSH PRN (22:00)
[2017-05-01] MEDS ORDERED: LACTULOSE SYRUP 20 GM/30 ML CUP PO PRN (22:00)
[2017-05-01] MEDS ORDERED: ACETAMINOPHEN/HYDROcodone 325 MG/5 MG TAB PO PRN (22:00)
[2017-05-01] MEDS ORDERED: MISCELLANEOUS NURSING INFORMATION XX SCH (22:00)
[2017-05-01] MEDS ORDERED: ACETAMINOPHEN 325 MG TAB PO PRN (22:00)
[2017-05-01] MEDS ORDERED: MORPHINE SULFATE 4 MG/ML INJ IV PUSH PRN (22:00)
[2017-05-01] MEDS ORDERED: RESP: ALBUTEROL 2.5 MG/3 ML NEB (PRN) INH (22:00)
[2017-05-01] MEDS ORDERED: SODIUM CHLORIDE 0.9% FLUSH 10 ML FLUSH IV FLUSH PRN (22:00)
[2017-05-01] MEDS ORDERED: BISACODYL 10 MG SUPP RECTAL PRN (22:00)
[2017-05-01] MEDS ORDERED: CHLORHEXIDINE GLUCONATE 2 % 1 PACK (2 CLOTHS) TOP PRN (22:00)
[2017-05-01 23:33] LABS: BLOOD GAS VENOUS BASE EXCESS 8.6 mmol/L (-2-2); BLOOD GAS VENOUS HCO3 36 mmol/L (22-26); BLOOD GAS VENOUS O2 CONTENT 8.9 Vol % (9.0-17.0); BLOOD GAS VENOUS O2 HGB SAT 62 % (70-76); BLOOD GAS VENOUS PCO2 95 mmHg (44-48); BLOOD GAS VENOUS PO2 40 mmHg (35-40); BLOOD GAS VENOUS pH 7.21 (7.360-7.400); TEMP CORR TO 98.6
[2017-05-01 23:35] LABS: DRAW SITE PIV; LITER FLOW 4 L/M; OXYGEN DEVICE NASAL CANNULA
[2017-05-01 23:36] LABS: STAT NO
[2017-05-01 23:37] LABS: CRITICAL VALUE YES
[2017-05-01] MEDS: AZITHROMYCIN INJ 500 MG in SODIUM CHLOR 0.9% 250 ML INJ 250 ML IV SCH (23:46)
[2017-05-01] MEDS: SODIUM CHLOR 0.9% 1000 ML INJ 1,000 ML IV SCH (23:46)
[2017-05-01] MEDS: PHENYTOIN SODIUM 100 MG CAP PO SCH (23:47)
[2017-05-01] MEDS: methylPREDNISolone SOD SUCC 40 MG/1 ML VIAL IV PUSH SCH (23:47)
[2017-05-01] MEDS: HEPARIN SODIUM - SQ 10,000 UNITS/ML VIAL SQ SCH (23:48)
[2017-05-02] VITALS (24 sets, daily range): BP systolic 103–151; BP diastolic 56–73; PULSE 75–98; RESP 16–24; TEMP 97.4–98.5; O2SAT 82–98
[2017-05-02] MEDS: RESP: ALBUTEROL 2.5 MG/IPRATROPIUM 0.5 MG NEB (SCH) INH ×6 (02:53→23:31)
[2017-05-02] MEDS: CHLORHEXIDINE GLUCONATE 2 % 1 PACK (2 CLOTHS) TOP SCH ×2 (04:00→19:42)
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
[2017-05-02] MEDS: PHENYTOIN SODIUM 100 MG CAP PO SCH ×3 (06:04→21:12)
[2017-05-02] MEDS: HEPARIN SODIUM - SQ 10,000 UNITS/ML VIAL SQ SCH ×3 (06:05→21:12)
[2017-05-02 06:24] LABS: BLOOD GAS BASE EXCESS 6.7 mmol/L (-2-2); BLOOD GAS CARBOXYHEMOGLOBIN 1.6 % (0-4); BLOOD GAS HCO3 34 mmol/L (22-26); BLOOD GAS METHEMOGLOBIN 1.4 % (0-2); BLOOD GAS O2 HGB SATURATION 91 % (90-100); BLOOD GAS OXYGEN CONTENT 13.1 Vol % (12.0-20.0); BLOOD GAS PCO2 83 mmHg (38-42); BLOOD GAS PO2 72 mmHg (61-120); BLOOD GAS TOTAL HGB 10.1 G/DL (12.0-16.0); CRITICAL VALUE YES
[2017-05-02 06:25] LABS: DRAW SITE RT RADIAL; FIO2 40 %; OXYGEN DEVICE BiPAP
[2017-05-02 06:26] LABS: NUMBER OF ARTERIAL PUNCTURES 1; STAT NO; ULNAR PULSE PRESENT
[2017-05-02 07:33] LABS: PROTHROMBIN TIME - PATIENT 10.7 SEC (9.8-11.6)
[2017-05-02 07:42] LABS: ALKALINE PHOSPHATASE 103 U/L (45-117); ALT (GPT) 14 U/L (12-78); ANION GAP 5 MEQ/L (5-15); AST (GOT) 12 U/L (15-37); BLOOD UREA NITROGEN 38 MG/DL (7-18); CHLORIDE 99 MEQ/L (98-107); GLOMERULAR FILTRATION RATE 57 ML/MIN (>89); MAGNESIUM 2.1 MG/DL (1.5-2.5); POTASSIUM 4.8 MEQ/L (3.5-5.1); SODIUM (NA) 139 MEQ/L (136-145); TOTAL BILIRUBIN ADULT 0.3 MG/DL (0.2-1.0)
[2017-05-02] MEDS ORDERED: FORMOTEROL NEB SCH (08:00)
[2017-05-02] MEDS: SODIUM CHLORIDE 0.9% FLUSH 10 ML FLUSH IV FLUSH SCH ×2 (09:00→21:00)
[2017-05-02] MEDS ORDERED: POTASSIUM CHLORIDE 10 MEQ CAP PO SCH (09:00)
[2017-05-02] MEDS ORDERED: FUROSEMIDE 20 MG TAB PO SCH (09:00)
[2017-05-02] MEDS ORDERED: BUDESONIDE 180 MCG INH SCH (09:00)
[2017-05-02] MEDS: ARTIFICIAL TEARS OPTH SOLN 15 ML BTL EACH EYE SCH ×3 (09:31→17:15)
[2017-05-02] MEDS: PANTOPRAZOLE SOD 40 MG DELAYED RELEASE TAB PO SCH (09:31)
[2017-05-02] MEDS: methylPREDNISolone SOD SUCC 40 MG/1 ML VIAL IV PUSH SCH ×2 (09:31→21:12)
[2017-05-02] MEDS: DILTIAZEM-CD 120 MG CAP ER PO SCH (09:31)
[2017-05-02] MEDS: LOSARTAN 50 MG TAB PO SCH (09:31)
[2017-05-02] MEDS: DOCUSATE SODIUM 50 MG/SENNA 8.6 MG TAB PO SCH ×2 (09:31→21:00)
[2017-05-02] MEDS: SODIUM CHLOR 0.9% 1000 ML INJ 1,000 ML IV SCH (09:56)
[2017-05-02 12:33] LABS: BLOOD GAS BASE EXCESS 5.9 mmol/L (-2-2); BLOOD GAS HCO3 33 mmol/L (22-26); BLOOD GAS METHEMOGLOBIN 1.2 % (0-2); BLOOD GAS O2 HGB SATURATION 85 % (90-100); BLOOD GAS OXYGEN CONTENT 10.8 Vol % (12.0-20.0); BLOOD GAS PCO2 75 mmHG (38-42); BLOOD GAS PO2 58 mmHG (61-120); TEMP CORR TO 98.6
[2017-05-02 12:34] LABS: CRITICAL VALUE YES; LITER FLOW 2 L/M; OXYGEN DEVICE NASAL CANNULA
[2017-05-02 12:35] LABS: DRAW SITE LT RADIAL; NUMBER OF ARTERIAL PUNCTURES 1; STAT NO; ULNAR PULSE PRESENT
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
[2017-05-02] MEDS: AZITHROMYCIN INJ 500 MG in SODIUM CHLOR 0.9% 250 ML INJ 250 ML IV SCH (21:12)
--- NOTE | 2017-05-02 21:28 | EKG ---
Date Performed: 05/01/2017 Time Performed: 22:08:22 PTAGE: 56 years EKG: Sinus rhythm NORMAL ECG PREVIOUS TRACING : 05/01/2017 19.45 Compared to prior tracing no significant change DOCTOR: Samaria Sánchez Interpretating Date/Time 05/02/2017 21:27:11
--- NOTE | 2017-05-02 21:36 | EKG ---
Date Performed: 05/01/2017 Time Performed: 19:45:48 PTAGE: 56 years EKG: Sinus rhythm NONSPECIFIC T-WAVE ABNORMALITY BORDERLINE ECG PREVIOUS TRACING : 07/26/2016 00.16 Compared to prior tracing no significant change DOCTOR: Samaria Sánchez Interpretating Date/Time 05/02/2017 21:35:26
[2017-05-03] VITALS (25 sets, daily range): BP systolic 132–169; BP diastolic 64–88; PULSE 86–108; RESP 15–32; TEMP 97–98.4; O2SAT 88–98
[2017-05-03] MEDS: RESP: ALBUTEROL 2.5 MG/IPRATROPIUM 0.5 MG NEB (SCH) INH ×6 (03:41→23:51)
[2017-05-03] MEDS: HEPARIN SODIUM - SQ 10,000 UNITS/ML VIAL SQ SCH ×3 (06:03→21:26)
[2017-05-03] MEDS: PHENYTOIN SODIUM 100 MG CAP PO SCH ×3 (06:03→21:26)
[2017-05-03 06:42] LABS: BLOOD GAS BASE EXCESS 9.6 mmol/L (-2-2); BLOOD GAS CARBOXYHEMOGLOBIN 1.7 % (0-4); BLOOD GAS HCO3 35 mmol/L (22-26); BLOOD GAS O2 HGB SATURATION 89 % (90-100); BLOOD GAS OXYGEN CONTENT 10.6 Vol % (12.0-20.0); BLOOD GAS PCO2 61 mmHg (38-42); BLOOD GAS PO2 59 mmHg (61-120); BLOOD GAS TOTAL HGB 8.4 G/DL (12.0-16.0)
[2017-05-03 06:43] LABS: CRITICAL VALUE YES; DRAW SITE RT RADIAL; LITER FLOW 3 L/M; NUMBER OF ARTERIAL PUNCTURES 1; OXYGEN DEVICE NASAL CANNULA; STAT NO; ULNAR PULSE PRESENT
[2017-05-03] MEDS: LOSARTAN 50 MG TAB PO SCH (08:30)
[2017-05-03] MEDS: DOCUSATE SODIUM 50 MG/SENNA 8.6 MG TAB PO SCH ×2 (08:30→21:27)
[2017-05-03] MEDS: methylPREDNISolone SOD SUCC 40 MG/1 ML VIAL IV PUSH SCH (08:30)
[2017-05-03] MEDS: DILTIAZEM-CD 120 MG CAP ER PO SCH (08:30)
[2017-05-03] MEDS: PANTOPRAZOLE SOD 40 MG DELAYED RELEASE TAB PO SCH (08:30)
[2017-05-03] MEDS: SODIUM CHLORIDE 0.9% FLUSH 10 ML FLUSH IV FLUSH SCH ×2 (08:30→21:27)
[2017-05-03] MEDS: POTASSIUM CHLORIDE 10 MEQ CONTROLLED RELEASE TAB PO SCH (08:30)
[2017-05-03] MEDS: ARTIFICIAL TEARS OPTH SOLN 15 ML BTL EACH EYE SCH ×3 (08:43→18:12)
[2017-05-03] MEDS ORDERED: INFLUENZA VIRUS VACCINE (QUADRIVALENT) 0.5 ML SYR IM ONE (10:00)
--- NOTE | 2017-05-03 14:36 | HHI.PR ---
Subjective Remarks patient seen today in follow-up for COPD exacerbation and hypoxemia with respiratory failure. Overall improved. Now back on his baseline oxygen. Patient medications to be transferred to oral Objective Vitals Vital Signs Date Time Temp Pulse Resp B/P (MAP) Pulse Ox O2 Delivery O2 Flow Rate FiO2 05/03/17 13:52 97.9 99 22 162/77 (105) 92 05/03/17 13:00 100 05/03/17 12:00 94 05/03/17 11:00 96 05/03/17 10:00 98 05/03/17 09:00 104 32 169/77 (107) 92 05/03/17 09:00 104 05/03/17 08:00 97.6 90 25 162/88 (112) 96 05/03/17 08:00 Nasal Cannula 3.00 05/03/17 08:00 90 05/03/17 07:55 95 Nasal Cannula 3.00 05/03/17 07:00 86 05/03/17 07:00 86 25 150/81 (104) 93 05/03/17 06:00 88 25 140/69 (92) 92 05/03/17 06:00 88 05/03/17 05:00 96 24 150/73 (98) 94 05/03/17 04:00 98.4 92 25 135/68 (90) 92 05/03/17 04:00 92 05/03/17 03:00 90 23 135/70 (91) 88 05/03/17 02:00 92 05/03/17 02:00 92 26 141/68 (92) 92 05/03/17 01:00 96 15 134/67 (89) 90 05/03/17 00:00 98 05/03/17 00:00 98.3 98 23 132/64 (86) 91 05/02/17 23:00 94 21 122/61 (81) 92 05/02/17 22:00 96 19 103/56 (72) 93 05/02/17 22:00 96 05/02/17 20:00 98.5 96 21 132/63 (86) 92 05/02/17 20:00 92 Nasal Cannula 3.00 05/02/17 20:00 96 05/02/17 19:33 98 Nasal Cannula 3.00 05/02/17 19:00 98 20 151/72 (98) 92 05/02/17 18:00 90 24 109/60 (76) 91 05/02/17 17:00 94 23 125/59 (81) 90 05/02/17 16:00 92 05/02/17 16:00 98.3 92 23 122/61 (81) 90 05/02/17 15:37 93 Nasal Cannula 3.00 05/02/17 15:00 90 24 127/64 (85) 92 I/O 05/02/17 05/02/17 05/02/17 05/03/17 05/03/17 05/03/17 06:59 14:59 22:59 06:59 14:59 22:59 Intake Total 250 ml 960 ml Output Total 550 ml 1200 ml Balance -550 ml 250 ml -240 ml Intake Oral 960 ml IV Total 250 ml Output Urine Total 550 ml 1200 ml # Voids 2 # Bowel Movements 1 Result Diagram: 05/01/17 1945 05/02/17 0710 Imaging Last Impressions Chest X-Ray 05/01/17 1938 Signed Impressions: Service Date/Time: Monday, May 01, 2017 19:50 - CONCLUSION: No evidence of acute cardiopulmonary disease. Miguel Porras MD CT Angiography 05/01/17 0000 Signed Impressions: Service Date/Time: Monday, May 01, 2017 20:47 - CONCLUSION: 1. No pulmonary embolus or other acute abnormality. 2. Mild emphysema and scarring. Miguel Porras MD Objective Remarks GENERAL: This is a well-nourished, well-developed patient, in no apparent distress. CARDIOVASCULAR: Regular rate and rhythm without murmurs, gallops, or rubs. RESPIRATORY: Clear to auscultation. Breath sounds equal bilaterally. No wheezes , rales, or rhonchi. GASTROINTESTINAL: Abdomen soft, non-tender, nondistended. Normal active bowel sounds MUSCULOSKELETAL: Extremities without clubbing, cyanosis, or edema. 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 Moves all ext x4 A/P Problem List: (1) Hypercapnic respiratory failure ICD Code: J96.92 - Respiratory failure, unspecified with hypercapnia Status: Acute Plan: Resolved. Continued she would for COPD exacerbation (2) COPD exacerbation ICD Code: J44.1 - Chronic obstructive pulmonary disease with (acute) exacerbation Status: Acute Plan: Continue with oral antibiotics, IV steroids were changed to oral steroids today, continue bronchodilators Patient at home O2 levels Discharge Planning Discharge in a.m., transferred to [facility] Activity ad Ruby Lopez MD May 03, 2017 14:36
--- NOTE | 2017-05-03 17:42 | HHI.PR ---
Subjective Remarks 56 YOWM with COPD exac,Hypercapnoic RF Feels better Did't require CPAP On NC Mild wheezing Objective Vital Signs Vital Signs Date Time Temp Pulse Resp B/P (MAP) Pulse Ox O2 Delivery O2 Flow Rate FiO2 05/03/17 16:00 94 05/03/17 15:00 92 05/03/17 14:00 96 05/03/17 13:52 97.9 99 22 162/77 (105) 92 05/03/17 13:00 100 05/03/17 12:00 94 05/03/17 11:00 96 05/03/17 10:00 98 05/03/17 09:00 104 32 169/77 (107) 92 05/03/17 09:00 104 05/03/17 08:00 97.6 90 25 162/88 (112) 96 05/03/17 08:00 Nasal Cannula 3.00 05/03/17 08:00 90 05/03/17 07:55 95 Nasal Cannula 3.00 05/03/17 07:00 86 05/03/17 07:00 86 25 150/81 (104) 93 05/03/17 06:00 88 25 140/69 (92) 92 05/03/17 06:00 88 05/03/17 05:00 96 24 150/73 (98) 94 05/03/17 04:00 98.4 92 25 135/68 (90) 92 05/03/17 04:00 92 05/03/17 03:00 90 23 135/70 (91) 88 05/03/17 02:00 92 05/03/17 02:00 92 26 141/68 (92) 92 05/03/17 01:00 96 15 134/67 (89) 90 05/03/17 00:00 98 05/03/17 00:00 98.3 98 23 132/64 (86) 91 05/02/17 23:00 94 21 122/61 (81) 92 05/02/17 22:00 96 19 103/56 (72) 93 05/02/17 22:00 96 05/02/17 20:00 98.5 96 21 132/63 (86) 92 05/02/17 20:00 92 Nasal Cannula 3.00 05/02/17 20:00 96 05/02/17 19:33 98 Nasal Cannula 3.00 05/02/17 19:00 98 20 151/72 (98) 92 05/02/17 18:00 90 24 109/60 (76) 91 I/O 05/02/17 05/02/17 05/02/17 05/03/17 05/03/17 05/03/17 07:00 15:00 23:00 07:00 15:00 23:00 Intake Total 250 ml 960 ml Output Total 550 ml 1200 ml Balance -550 ml 250 ml -240 ml Intake Oral 960 ml IV Total 250 ml Output Urine Total 550 ml 1200 ml # Voids 2 # Bowel Movements 1 Result Diagram: 05/01/17194405/02/1710 Objective Remarks GENERAL: MBMN WM with mild sob SKIN: Warm and dry. HEAD: Normocephalic. EYES: No scleral icterus. No injection or drainage. NECK: Supple, trachea midline. No JVD or lymphadenopathy. CARDIOVASCULAR: Regular rate and rhythm without murmurs, gallops, or rubs. RESPIRATORY: Breath sounds equal bilaterally. No accessory muscle use. End exp rhonchi GASTROINTESTINAL: Abdomen soft, non-tender, nondistended. MUSCULOSKELETAL: No cyanosis, or edema. BACK: Nontender without obvious deformity. No CVA tenderness. A/P Assessment and Plan Hpercapnoic RF, improved COPD exac Hypoxia, no PE HTN PLAN: Aerosol nebs Supplement 02 Cont Abx PO steroids Stable from pulm standpoint to tr to floor. Ronny See MD May 03, 2017 17:42
[2017-05-03] MEDS: predniSONE 20 MG TAB PO SCH (21:26)
[2017-05-04] VITALS (14 sets, daily range): BP systolic 160–172; BP diastolic 80–91; PULSE 85–104; RESP 20–28; TEMP 97.5–97.8; O2SAT 85–96
[2017-05-04] MEDS: RESP: ALBUTEROL 2.5 MG/IPRATROPIUM 0.5 MG NEB (SCH) INH ×3 (03:46→10:53)
--- NOTE | 2017-05-04 05:58 | PQ ---
Physician Query Response Document PATIENT: MILY CONN : 1960 ADMIT DATE: 05/01/2017 9:56 PM DISCH DATE: RESPONDING PROVIDER #: agreene QUERY TEXT: Respiratory Failure Acuity and Type Respiratory Failure is documented in the Medical Record. Please specify the type and acuity (includes suspected or probable) Such as: -- Acute respiratory failure - With hypoxia - With hypercapnia -- Chronic respiratory failure - With hypoxia - With hypercapnia -- Acute on chronic respiratory failure - With hypoxia - With hypercapnia -- Other, please specify The patient's Clinical Indicators include: COPD EXACERBATION requiring BIPAP on admission ABD PH 7.24 pCO2 83 HC03 34 ON BIPAP 40% FIO2 WITH RESPIRTORY RATE per Pulmonology Hapercapneic and hypoxic respiratory failure on oxygen 4L at home Query created by: Natasha Adams on 05/03/2017 12:49 PM RESPONSE TEXT: The patient exhibited Acute on chronic hypoxic and hypercarbic respiratory failure. Electronically signed by: Margarito Tapia MD 05/04/2017 5:54 AM
[2017-05-04] MEDS: POTASSIUM CHLORIDE 10 MEQ CONTROLLED RELEASE TAB PO SCH (08:42)
[2017-05-04] MEDS: DILTIAZEM-CD 120 MG CAP ER PO SCH (08:42)
[2017-05-04] MEDS: PANTOPRAZOLE SOD 40 MG DELAYED RELEASE TAB PO SCH (08:42)
[2017-05-04] MEDS: LOSARTAN 50 MG TAB PO SCH (08:42)
[2017-05-04] MEDS: DOCUSATE SODIUM 50 MG/SENNA 8.6 MG TAB PO SCH (08:42)
[2017-05-04] MEDS: SODIUM CHLORIDE 0.9% FLUSH 10 ML FLUSH IV FLUSH SCH (08:43)
[2017-05-04] MEDS: predniSONE 20 MG TAB PO SCH (08:43)
[2017-05-04] MEDS: ARTIFICIAL TEARS OPTH SOLN 15 ML BTL EACH EYE SCH ×2 (08:51→12:19)
[2017-05-04] MEDS ORDERED: LEVOFLOXACIN 750 MG TAB PO SCH (09:00)
[2017-05-04] MEDS ORDERED: LEVA750T9 PO (11:04)
[2017-05-04] MEDS ORDERED: PRED20 PO (11:04)
--- NOTE | 2017-05-04 11:04 | HHI.DCPOC ---
Discharge Care Plan Diagnosis: (1) Acute exacerbation of chronic obstructive pulmonary disease (COPD) Goals to Promote Your Health * To prevent worsening of your condition and complications * To maintain your health at the optimal level Directions to Meet Your Goals Take your medications as prescribed Follow your dietary instruction Follow activity as directed Keep your appointments as scheduled Take your immunizations and boosters as scheduled If your symptoms worsen call your PCP, if no PCP go to Urgent Care Center or Emergency Room Smoking is Dangerous to Your Health. Avoid second hand smoke Call the 24-hour hour crisis hotline for domestic abuse at Ruby Madera MD May 04, 2017 11:04
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
--- NOTE | 2017-05-04 11:53 | HHI.PR ---
Subjective Remarks 56 YOWM with COPD exac,Hypercapnoic RF Feels better Did't require CPAP On NC Breathing better Objective Vital Signs Vital Signs Date Time Temp Pulse Resp B/P (MAP) Pulse Ox O2 Delivery O2 Flow Rate FiO2 05/04/17 10:00 104 05/04/17 09:00 100 05/04/17 08:03 97.5 94 26 167/91 (116) 95 05/04/17 08:00 92 05/04/17 08:00 Nasal Cannula 2.00 05/04/17 07:57 90 28 172/80 (110) 95 05/04/17 07:41 96 Nasal Cannula 3.00 05/04/17 07:00 90 05/04/17 06:00 96 05/04/17 05:00 104 05/04/17 04:00 92 05/04/17 04:00 97.5 92 22 171/81 (111) 95 05/04/17 00:00 97.7 85 22 160/81 (107) 85 05/04/17 00:00 92 05/03/17 22:00 94 05/03/17 20:00 97.8 99 29 160/73 (102) 98 05/03/17 20:00 99 05/03/17 20:00 94 Nasal Cannula 2.00 05/03/17 19:16 94 Nasal Cannula 3.00 05/03/17 18:10 97.0 98 26 149/71 (97) 95 05/03/17 18:00 100 05/03/17 17:00 108 05/03/17 16:00 94 05/03/17 15:00 92 05/03/17 14:00 96 05/03/17 13:52 97.9 99 22 162/77 (105) 92 05/03/17 13:00 100 05/03/17 12:00 94 I/O 05/03/17 05/03/17 05/03/17 05/04/17 05/04/17 05/04/17 07:00 15:00 23:00 07:00 15:00 23:00 Intake Total 960 ml 960 ml 0 ml Output Total 1200 ml 2000 ml 150 ml Balance -240 ml -1040 ml -150 ml Intake Oral 960 ml 960 ml 0 ml Output Urine Total 1200 ml 2000 ml 150 ml # Bowel Movements 1 0 Result Diagram: 05/01/17 1945 05/02/17 0710 Objective Remarks GENERAL: MBMN WM with mild sob SKIN: Warm and dry. HEAD: Normocephalic. EYES: No scleral icterus. No injection or drainage. NECK: Supple, trachea midline. No JVD or lymphadenopathy. CARDIOVASCULAR: Regular rate and rhythm without murmurs, gallops, or rubs. RESPIRATORY: Breath sounds equal bilaterally. No accessory muscle use. End exp rhonchi GASTROINTESTINAL: Abdomen soft, non-tender, nondistended. MUSCULOSKELETAL: No cyanosis, or edema. BACK: Nontender without obvious deformity. No CVA tenderness. A/P Assessment and Plan Hpercapnoic RF, improved COPD exac Hypoxia, no PE HTN PLAN: Aerosol nebs Supplement 02 Cont Abx PO steroids Stable from pulm standpoint Will FU in office 2 weeks Ronny See MD May 04, 2017 11:53
[2017-05-04] MEDS: HEPARIN SODIUM - SQ 10,000 UNITS/ML VIAL SQ SCH (14:00)
[2017-05-04] MEDS: PHENYTOIN SODIUM 100 MG CAP PO SCH (14:12)
== END 2017-05-04 15:10 | disposition home or self-care (01) | DRG 189 ==
LOC: PHED 19:02 → PHEDA 21:56 → PHICU 05-02 13:13
PROVIDERS: ADMIT Hospitalist; ATTEND Hospitalist
PROC: 5A09457 Assistance with Respiratory Ventilation, 24-96 Consecutive Hours, Continuous Positive Airway Pressure (ICD-10-PCS; principal; 2017-05-01)
DX: J96.21 Acute and chronic respiratory failure with hypoxia (principal); N17.9 Acute kidney failure, unspecified; Z99.81 Dependence on supplemental oxygen; J44.1 Chronic obstructive pulmonary disease with (acute) exacerbation; E86.0 Dehydration; J96.22 Acute and chronic respiratory failure with hypercapnia; K21.9 Gastro-esophageal reflux disease without esophagitis; I10 Essential (primary) hypertension; F79 Unspecified intellectual disabilities; F17.210 Nicotine dependence, cigarettes, uncomplicated; E11.9 Type 2 diabetes mellitus without complications; Z79.84 Long term (current) use of oral hypoglycemic drugs; Z86.73 Personal history of transient ischemic attack (TIA), and cerebral infarction without residual deficits; F12.90 Cannabis use, unspecified, uncomplicated; G40.909 Epilepsy, unspecified, not intractable, without status epilepticus
CPT/HCPCS: 36600; 71010; 71275; 80053; 80185; 82550; 82805; 83605; 83735; 84100; 84484; 85025; 85610; 85730; 87070; 87205; 87641; 93005; 94002; 94640; 94664; 96360; J0456; J1644; J2920; J7030; J7040; J7050; J7512; Q9967

== ENCOUNTER 2017-06-28 11:53 | Emergency (ER) | payer OTHER ==
[~2017-06-28] VITALS: Ht 175.3 cm; Wt 67.6 kg
[~2017-06-28 11:53] MED LIST changes: +LEVA750T9 PO
[2017-06-28] MEDS ORDERED: ALBU1.25 NEB (12:23)
[2017-06-28 12:24] VITALS: BP 104/52; PULSE 107; RESP 18; TEMP 98.1; O2SAT 82
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
[2017-06-28] MEDS ORDERED: TETANUS/DIPHTHERIA TOXOID ADULT 0.5 ML VIAL IM ONE (12:30)
[2017-06-28] MEDS ORDERED: CEPH-460 PO (12:33)
[2017-06-28] MEDS ORDERED: CEPHALEXIN MONOHYDRATE 500 MG CAP PO ONE (12:45)
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
[2017-06-28 13:32] VITALS: BP 116/64; PULSE 84; O2SAT 100
== END 2017-06-28 13:57 | disposition home or self-care (01) ==
LOC: PHED 11:53
DX: T20.29XA Burn of second degree of multiple sites of head, face, and neck, initial encounter (principal); T31.0 Burns involving less than 10% of body surface; J44.9 Chronic obstructive pulmonary disease, unspecified; E78.00 Pure hypercholesterolemia, unspecified; I10 Essential (primary) hypertension; F17.210 Nicotine dependence, cigarettes, uncomplicated; X08.8XXA Exposure to other specified smoke, fire and flames, initial encounter; Z99.81 Dependence on supplemental oxygen; Z86.73 Personal history of transient ischemic attack (TIA), and cerebral infarction without residual deficits
CPT/HCPCS: 71010; 99283

== ENCOUNTER 2017-11-07 11:16 | Emergency (ER) | payer OTHER ==
[~2017-11-07] VITALS: Ht 165.1 cm; Wt 73.0 kg
[~2017-11-07 11:16] MED LIST changes: -ALBU0.08 NEB; +ALBU1.25 NEB; +CEPH-460 PO; -IPRA17I INH; -IPRASOL INH; -LEVA750T9 PO; -NICO21DI6 T-DERMAL; -PRED20 PO; -PULM180I INH; -VENTAER INH
[2017-11-07 11:20] VITALS: BP 133/59; PULSE 110; RESP 24; TEMP 97.8; O2SAT 90
[2017-11-07] MEDS ORDERED: METF500T PO (11:44)
[2017-11-07] MEDS ORDERED: SODIUM CHLOR 0.9% 1000 ML INJ 1,000 ML IV ONE (11:45)
[2017-11-07] MEDS ORDERED: methylPREDNISolone SOD SUCC 125 MG/2 ML VIAL IV PUSH ONE (11:45)
[2017-11-07] MEDS ORDERED: SODIUM CHLORIDE 0.9% FLUSH 10 ML FLUSH IVF PRN (11:45)
[2017-11-07 11:54] VITALS: O2SAT 97
[2017-11-07] MEDS: RESP: ALBUTEROL 2.5 MG/IPRATROPIUM 0.5 MG NEB (SCH) INH ×2 (11:55→11:56)
[2017-11-07 12:00] VITALS: O2SAT 99
--- NOTE | 2017-11-07 12:05 | RADRPT ---
EXAM DATE/TIME: 11/07/2017 11:41 [facility] COMPARISON: CHEST SINGLE AP, June 28, 2017, 12:31. INDICATIONS : Short of breath MEDICAL HISTORY : Stroke. Chronic obstructive pulmonary disease SURGICAL HISTORY : Craniotomy. ENCOUNTER: Initial ACUITY: 1 day PAIN SCORE: 0/10 LOCATION: Bilateral chest FINDINGS: A single view of the chest demonstrates the lungs to be symmetrically aerated without evidence of mas s, infiltrate or effusion. There is hyperaeration with chronic interstitial changes bilaterally. The cardiomediastinal contours are unremarkable. Osseous structures are intact. No significant changes compared to the prior study. CONCLUSION: No acute disease. No significant change has occurred. Cam Rader MD on November 07, 2017 at 12:00 Board Certified Radiologist. This report was verified electronically.
[2017-11-07 12:15] LABS: AUTOMATED NEUTROPHIL # 6.9 TH/MM3 (1.8-7.7); BASOPHIL % 0.3 % (0.0-2.0); EOSINOPHIL # 0.3 TH/MM3 (0-0.4); EOSINOPHIL % 2.9 % (0.0-4.0); HEMATOCRIT 28.3 % (39.0-51.0); HEMOGLOBIN 8.9 GM/DL (13.0-17.0); LYMPH % 14.4 % (9.0-44.0); LYMPHOCYTE # 1.3 TH/MM3 (1.0-4.8); MEAN CELL VOLUME 93.8 FL (80.0-100.0); MEAN CORPUSCULAR HEMOGLOBIN 29.5 PG (27.0-34.0); MEAN CORPUSCULAR HGB CONC 31.5 % (32.0-36.0); MONOCYTE # 0.9 TH/MM3 (0-0.9); NEUT % 72.4 % (16.0-70.0); PLATELET COUNT 317 TH/MM3 (150-450); RED BLOOD COUNT 3.02 MIL/MM3 (4.50-5.90); RED CELL DISTRIBUTION WIDTH 13.8 % (11.6-17.2); WHITE BLOOD COUNT 9.4 TH/MM3 (4.0-11.0)
[2017-11-07 12:19] LABS: CHLORIDE 91 MEQ/L (98-107); SODIUM (NA) 136 MEQ/L (136-145)
[2017-11-07 12:20] VITALS: BP 196/83; PULSE 108; RESP 20; O2SAT 98
[2017-11-07 12:22] LABS: CALCIUM 9.4 MG/DL (8.5-10.1)
[2017-11-07 12:23] LABS: ALBUMIN 2.7 GM/DL (3.4-5.0); BICARBONATE 39.6 MEQ/L (21.0-32.0); BLOOD UREA NITROGEN 18 MG/DL (7-18); GLUCOSE,RANDOM 269 MG/DL (74-106); MAGNESIUM 1.6 MG/DL (1.5-2.5)
[2017-11-07 12:26] LABS: ALT (GPT) 8 U/L (12-78); AST (GOT) 5 U/L (15-37); GLOMERULAR FILTRATION RATE 52 ML/MIN (>89)
[2017-11-07 12:28] LABS: TOTAL BILIRUBIN ADULT 0.3 MG/DL (0.2-1.0); TOTAL PROTEIN 8.1 GM/DL (6.4-8.2)
[2017-11-07 12:29] LABS: ALKALINE PHOSPHATASE 120 U/L (45-117)
[2017-11-07 12:31] LABS: TROPONIN I LESS THAN 0.02 NG/ML (0.02-0.05)
--- NOTE | 2017-11-07 12:56 | PD ---
HPI Chief Complaint: Respiratory Distress Time Seen by Provider: 11:35 Travel History International Travel<30 days: No Contact w/Intl Traveler<30days: No Traveled to known affect area: No History of Present Illness HPI The patient's 56 and complains of shortness of breath. He's had it for about a week now. Productive cough is reported. This morning the patient became quite dyspneic prompting his evaluation here. He reports minimal chest pain on the right side. PFSH Past Medical History Arthritis: No Asthma: No Autoimmune Disease: No Blood Disorders: No Anxiety: No Depression: No Heart Rhythm Problems: No Cancer: No Cardiovascular Problems: No High Cholesterol: Yes Chemotherapy: No Chest Pain: No Congestive Heart Failure: No COPD: Yes (all the time oxygen) Cerebrovascular Accident: Yes Coronary Artery Disease: No Diabetes: Yes Patient Takes Glucophage: Yes Diminished Hearing: No Endocrine: Yes Gastrointestinal Disorders: No GERD: Yes Glaucoma: No Genitourinary: No Headaches: No Hepatitis: No Hiatal Hernia: No Heparin Induced Thrombocytopen: No Hypertension: Yes (not sure) Immune Disorder: No Implanted Vascular Access Dvce: Yes Kidney Stones: No Medical other: No Musculoskeletal: No Neurologic: Yes (memory loss) Psychiatric: No Reproductive: No Respiratory: Yes Immunizations Current: Yes Migraines: No Myocardial Infarction: No Radiation Therapy: No Renal Failure: No Seizures: Yes Sickle Cell Disease: No Sleep Apnea: No Thyroid Disease: No Ulcer: No Tetanus Vaccination: < 5 Years Past Surgical History Abdominal Surgery: No AICD: No Appendectomy: No Arteriovenous Shunt: No Body Medical Devices: brain clips Cardiac Surgery: No Cholecystectomy: No Ear Surgery: No Endocrine Surgery: No Eye Surgery: No Genitourinary Surgery: No Gynecologic Surgery: No Insulin Pump: No Joint Replacement: No Neurologic Surgery: Yes (BRAIN ANEURYSM 1990) Oral Surgery: Yes (teeth removal) Pacemaker: No Thoracic Surgery: No Other Surgery: Yes (ANEURISM CLIP TO BRAIN 1990) Social History Alcohol Use: No Tobacco Use: Yes (1 ppd; quit 2 days ago) Substance Use: Yes (marijuana) Allergies-Medications (Allergen,Severity, Reaction): Coded Allergies: No Known Allergies (Unverified Adverse Reaction, Unknown, 11/07/17) Reported Meds & Prescriptions Reported Meds & Active Scripts Active Azithromycin 250 Mg Tab 250 Mg PO DIRECTED Take 2 tabs (500 mg) on day 1 then 1 tab daily x 4 days. Inspirease Drug Delivery (Spacer/Device For Mdi) 1 Ea Mis 1 Ea .ROUTE DIRECTED Nebulizer 1 Mis Mis 1 Ea .ROUTE DIRECTED Perforomist Neb (Formoterol Fumarate) 20 Mcg/2 Ml Neb 1 Nebule INH BID Potassium Chloride ER (Potassium Chloride) 10 Meq Cap 10 Meq PO DAILY Dilantin (Phenytoin Extended) 100 Mg Cap 100 Mg PO Q8HR Furosemide 20 Mg Tab 20 Mg PO DAILY Reported Metformin (Metformin HCl) 500 Mg Tab 500 Mg PO DAILY With a meal Albuterol Neb (Albuterol Sulfate) 1.25 Mg/3 Ml Neb 2.5 Mg NEB Q4HR NEB PRN Losartan (Losartan Potassium) 50 Mg Tab 50 Mg PO DAILY Cartia Xt (Diltiazem ER 24 HR) 120 Mg Caper 120 Mg PO DAILY Atorvastatin (Atorvastatin Calcium) 10 Mg Tab 10 Mg PO HS Review of Systems Except as stated in HPI: all other systems reviewed are Neg General / Constitutional: No: Fever Physical Exam Narrative GENERAL: 56-year-old male mild distress Vital Signs Date Time Temp Pulse Resp B/P (MAP) Pulse Ox O2 Delivery O2 Flow Rate FiO2 11/07/17 12:20 108 20 196/83 (120) 98 Nasal Cannula 4.00 11/07/17 12:00 99 Nasal Cannula 4.00 11/07/17 11:54 97 Nasal Cannula 4.00 11/07/17 11:41 98 Nasal Cannula 4.00 11/07/17 11:34 96 Nasal Cannula 4.00 11/07/17 11:31 22 90 Room Air 11/07/17 11:20 97.8 110 24 133/59 (83) 90 SKIN: Warm and dry. HEAD: Atraumatic. Normocephalic. EYES: Pupils equal and round. No scleral icterus. No injection or drainage. ENT: No nasal bleeding or discharge. Mucous membranes pink and moist. NECK: Trachea midline. No JVD. CARDIOVASCULAR: Heart rate about 110. Regular rhythm. RESPIRATORY: No accessory muscle use. Clear to auscultation. Breath sounds equal bilaterally. GASTROINTESTINAL: Abdomen soft, non-tender, nondistended. Hepatic and splenic margins not palpable. MUSCULOSKELETAL: Extremities without clubbing, cyanosis, or edema. No obvious deformities. NEUROLOGICAL: Awake and alert. No obvious cranial nerve deficits. Motor grossly within normal limits. Five out of 5 muscle strength in the arms and legs. Normal speech. PSYCHIATRIC: Appropriate mood and affect; insight and judgment normal. Data Data Last Documented VS Vital Signs Date Time Temp Pulse Resp B/P (MAP) Pulse Ox O2 Delivery O2 Flow Rate FiO2 11/07/17 13:23 108 18 150/75 (100) 95 11/07/17 12:20 Nasal Cannula 4.00 11/07/17 11:20 97.8 Orders Orders Complete Blood Count With Diff (11/07/17 11:38) Comprehensive Metabolic Panel (11/07/17 11:38) Magnesium (Mg) (11/07/17 11:38) Ckmb (Isoenzyme) Profile (11/07/17 11:38) Troponin I (11/07/17 11:38) Influenzae A/B Antigen (11/07/17 11:38) Blood Culture (11/07/17 11:38) Iv Access Insert/Monitor (11/07/17 11:38) Electrocardiogram (11/07/17 11:38) Ecg Monitoring (11/07/17 11:38) Oximetry (11/07/17 11:38) Oxygen Administration (11/07/17 11:38) Chest, Single Ap (11/07/17 11:38) Sodium Chloride 0.9% Flush (Ns Flush) (11/07/17 11:45) Methylprednisolone So Succ Inj (Solumedr (11/07/17 11:45) Albuterol-Ipratropium Neb (Duoneb Neb) (11/07/17 11:45) Sodium Chlor 0.9% 1000 Ml Inj (Ns 1000 M (11/07/17 11:45) Ed Discharge Order (11/07/17 13:21) Labs Laboratory Tests Test 11/07/17 11:40 White Blood Count 9.4 TH/MM3 Red Blood Count 3.02 MIL/MM3 Hemoglobin 8.9 GM/DL Hematocrit 28.3 % Mean Corpuscular Volume 93.8 FL Mean Corpuscular Hemoglobin 29.5 PG Mean Corpuscular Hemoglobin Concent 31.5 % Red Cell Distribution Width 13.8 % Platelet Count 317 TH/MM3 Mean Platelet Volume 8.0 FL Neutrophils (%) (Auto) 72.4 % Lymphocytes (%) (Auto) 14.4 % Monocytes (%) (Auto) 10.0 % Eosinophils (%) (Auto) 2.9 % Basophils (%) (Auto) 0.3 % Neutrophils # (Auto) 6.9 TH/MM3 Lymphocytes # (Auto) 1.3 TH/MM3 Monocytes # (Auto) 0.9 TH/MM3 Eosinophils # (Auto) 0.3 TH/MM3 Basophils # (Auto) 0.0 TH/MM3 CBC Comment DIFF FINAL Differential Comment Blood Urea Nitrogen 18 MG/DL Creatinine 1.40 MG/DL Random Glucose 269 MG/DL Total Protein 8.1 GM/DL Albumin 2.7 GM/DL Calcium Level 9.4 MG/DL Magnesium Level 1.6 MG/DL Alkaline Phosphatase 120 U/L Aspartate Amino Transf (AST/SGOT) 5 U/L Alanine Aminotransferase (ALT/SGPT) 8 U/L Total Bilirubin 0.3 MG/DL Sodium Level 136 MEQ/L Potassium Level 4.2 MEQ/L Chloride Level 91 MEQ/L Carbon Dioxide Level 39.6 MEQ/L Anion Gap 5 MEQ/L Estimat Glomerular Filtration Rate 52 ML/MIN Total Creatine Kinase 39 U/L Troponin I LESS THAN 0.02 NG/ML MDM Medical Decision Making Medical Screen Exam Complete: Yes Emergency Medical Condition: Yes Medical Record Reviewed: Yes Differential Diagnosis Pneumonia, pneumothorax, bronchitis, COPD exacerbation Narrative Course CBC & BMP Diagram 11/07/17 11:40 Total Protein 8.1, Albumin 2.7 L, Calcium Level 9.4, Magnesium Level 1.6, Alkaline Phosphatase 120 H, Aspartate Amino Transf (AST/SGOT) 5 L, Alanine Aminotransferase (ALT/SGPT) 8 L, Total Bilirubin 0.3 Last Impressions Chest X-Ray 11/07/17 1138 Signed Impressions: Service Date/Time: Tuesday, November 07, 2017 11:41 - CONCLUSION: No acute disease. No significant change has occurred. Cam Rader MD Patient received albuterol and Solu-Medrol. He ambulated around the ER without oxygen and his O2 sat was less than 80 however given the fact that he is home oxygen dependent this is not surprising in the pulse ox rapidly increased to the 90s with 2 L. Patient reported marked improvement. Patient ready for discharge home. Scripts as below. Diagnosis Primary Impression: COPD (chronic obstructive pulmonary disease) Qualified Codes: J44.9 - Chronic obstructive pulmonary disease, unspecified Additional Impression: Bronchitis Referrals: Primary Care Physician Med/Other Pt SpecificInfo: Prescription(s) given Scripts Azithromycin (Azithromycin) 250 Mg Tab 250 MG PO DIRECTED for Infection, #6 TAB 0 Refills Take 2 tabs (500 mg) on day 1 then 1 tab daily x 4 days. Prov: Ozzy Antonio MD 11/07/17 Disposition: 01 DISCHARGE HOME Condition: Stable Ozzy Antonio MD Nov 07, 2017 12:56
[2017-11-07] MEDS ORDERED: AZIT250T3 PO (13:22)
[2017-11-07 13:23] VITALS: BP 150/75
--- NOTE | 2017-11-07 14:17 | EKG ---
Date Performed: 11/07/2017 Time Performed: 11:54:25 PTAGE: 56 years EKG: SINUS TACHYCARDIA ABNORMAL RHYTHM ECG No significant change from prior electrocardiogram. PREVIOUS TRACING : 05/01/2017 22.08 DOCTOR: Bud To Interpretating Date/Time 11/07/2017 14:16:11
== END 2017-11-07 13:42 | disposition home or self-care (01) ==
LOC: PHED 11:16
DX: J44.9 Chronic obstructive pulmonary disease, unspecified (principal); J40 Bronchitis, not specified as acute or chronic; R00.0 Tachycardia, unspecified; E78.00 Pure hypercholesterolemia, unspecified; E11.9 Type 2 diabetes mellitus without complications; F17.210 Nicotine dependence, cigarettes, uncomplicated; Z99.81 Dependence on supplemental oxygen; Z86.73 Personal history of transient ischemic attack (TIA), and cerebral infarction without residual deficits; Z79.84 Long term (current) use of oral hypoglycemic drugs; Z79.899 Other long term (current) drug therapy
CPT/HCPCS: 71045; 80053; 82550; 83735; 84484; 85025; 87040; 87804; 93005; 94640; 94664; 96374; 99285; J2930; J7030

== ENCOUNTER 2018-01-31 17:02 | Inpatient (IN) | payer OTHER, MEDICARE ==
[2018-01-31] VITALS (8 sets, daily range): BP systolic 111–173; BP diastolic 56–71; PULSE 97–109; RESP 18–24; TEMP 97.9–100; O2SAT 93–97
[~2018-01-31] VITALS: Ht 167.6 cm; Wt 75.4 kg
[~2018-01-31 17:02] MED LIST changes: +AZIT250T3 PO; -CEPH-460 PO; -METF1000 PO; +METF500T PO
[2018-01-31] MEDS ORDERED: SODIUM CHLOR 0.9% 1000 ML INJ 800 ML IV ONE (17:17)
[2018-01-31] MEDS ORDERED: SODIUM CHLOR 0.9% 1000 ML INJ 1,000 ML IV ONE (17:17)
--- NOTE | 2018-01-31 17:17 | PD ---
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 The patient comes in complaining of cough and some shortness of breath. According to family member he has had a worsening of his cough episodes and shortness of breath over the last 2-3 days. Additionally the patient has also had decreased appetite over the last 2-3 days to the point that he is only may be having one sandwich a day at most. According to the family member the patient will just would rather sleep or rest all day and and not eat anything at all during the day. No known drug allergy Past medical history significant for sinus surgery, craniotomy for repair of an aneurysm, CVA, seizures, hypercholesterolemia, COPD, hypertension, GERD, diabetes previous pneumonia history PFSH Past Medical History Hx Anticoagulant Therapy: No Arthritis: No Asthma: No Autoimmune Disease: No Blood Disorders: No Anxiety: No Depression: No Heart Rhythm Problems: No Cancer: No Cardiovascular Problems: No High Cholesterol: Yes Chemotherapy: No Chest Pain: No Congestive Heart Failure: No COPD: Yes (all the time oxygen) Cerebrovascular Accident: Yes Coronary Artery Disease: No Diabetes: No Diminished Hearing: No Endocrine: Yes Gastrointestinal Disorders: No GERD: Yes Glaucoma: No Genitourinary: No Headaches: No Hepatitis: No Hiatal Hernia: No Heparin Induced Thrombocytopen: No Hypertension: Yes (not sure) Immune Disorder: No Implanted Vascular Access Dvce: Yes Kidney Stones: No Musculoskeletal: No Neurologic: Yes (memory loss) Psychiatric: No Reproductive: No Respiratory: Yes (COPD) Immunizations Current: Yes Migraines: No Myocardial Infarction: No Radiation Therapy: No Renal Failure: No Seizures: Yes Sickle Cell Disease: No Sleep Apnea: No Thyroid Disease: No Ulcer: No Past Surgical History Abdominal Surgery: No AICD: No Appendectomy: No Arteriovenous Shunt: No Body Medical Devices: brain clips Cardiac Surgery: No Cholecystectomy: No Ear Surgery: No Endocrine Surgery: No Eye Surgery: No Genitourinary Surgery: No Gynecologic Surgery: No Insulin Pump: No Joint Replacement: No Neurologic Surgery: Yes (BRAIN ANEURYSM 1990) Oral Surgery: Yes (teeth removal) Pacemaker: No Thoracic Surgery: No Other Surgery: Yes (ANEURISM CLIP TO BRAIN 1991) Social History Alcohol Use: No Tobacco Use: Yes (1 ppd; quit 2 days ago) Substance Use: Yes (marijuana) Allergies-Medications (Allergen,Severity, Reaction): Coded Allergies: No Known Allergies (Unverified Adverse Reaction, Unknown, 01/31/18) Reported Meds & Prescriptions Reported Meds & Active Scripts Active Azithromycin 250 Mg Tab 250 Mg PO DIRECTED Take 2 tabs (500 mg) on day 1 then 1 tab daily x 4 days. Inspirease Drug Delivery (Spacer/Device For Mdi) 1 Ea Mis 1 Ea .ROUTE DIRECTED Nebulizer 1 Mis Mis 1 Ea .ROUTE DIRECTED Perforomist Neb (Formoterol Fumarate) 20 Mcg/2 Ml Neb 1 Nebule INH BID Potassium Chloride ER (Potassium Chloride) 10 Meq Cap 10 Meq PO DAILY Dilantin (Phenytoin Extended) 100 Mg Cap 100 Mg PO Q8HR Furosemide 20 Mg Tab 20 Mg PO DAILY Reported Metformin (Metformin HCl) 500 Mg Tab 500 Mg PO DAILY With a meal Albuterol Neb (Albuterol Sulfate) 1.25 Mg/3 Ml Neb 2.5 Mg NEB Q4HR NEB PRN Losartan (Losartan Potassium) 50 Mg Tab 50 Mg PO DAILY Cartia Xt (Diltiazem ER 24 HR) 120 Mg Caper 120 Mg PO DAILY Atorvastatin (Atorvastatin Calcium) 10 Mg Tab 10 Mg PO HS Review of Systems General / Constitutional: Positive: Fever Eyes: No: Visual changes HENT: No: Headaches Cardiovascular: No: Chest Pain or Discomfort Respiratory: No: Shortness of Breath Gastrointestinal: No: Abdominal Pain Genitourinary: No: Dysuria Musculoskeletal: No: Pain Skin: No Rash Neurologic: Positive: Weakness Psychiatric: No: Depression Endocrine: No: Polydipsia Hematologic/Lymphatic: No: Easy Bruising Physical Exam Narrative GENERAL: SKIN: Warm and dry. HEAD: Atraumatic. Normocephalic. EYES: Pupils equal and round. No scleral icterus. No injection or drainage. ENT: No nasal bleeding or discharge. Mucous membranes pink and moist. NECK: Trachea midline. No JVD. CARDIOVASCULAR: Tachycardic rate with regular rhythm. RESPIRATORY: Suprasternal accessory muscle use, tachypnea, decreased tidal volume, wheezing generally bilaterally, speaking 3 word dyspnea GASTROINTESTINAL: Abdomen soft, non-tender, nondistended. MUSCULOSKELETAL: Extremities without clubbing, cyanosis, or edema. No obvious deformities. NEUROLOGICAL: Awake and alert. No obvious cranial nerve deficits. Motor grossly within normal limits. Five out of 5 muscle strength in the arms and legs. Normal speech. PSYCHIATRIC: Appropriate mood and affect; insight and judgment normal. Data Data Last Documented VS Vital Signs Date Time Temp Pulse Resp B/P (MAP) Pulse Ox O2 Delivery O2 Flow Rate FiO2 01/31/18 18:58 98.9 101 20 111/56 (74) 93 Nasal Cannula 2.00 Orders Orders Sepsis Workup Initiated (01/31/18 ) Complete Blood Count With Diff (01/31/18 17:17) Comprehensive Metabolic Panel (01/31/18 17:17) Prothrombin Time / Inr (Pt) (01/31/18 17:17) Act Partial Throm Time (Ptt) (01/31/18 17:17) Lactic Acid Sepsis Protocol (01/31/18 17:17) Lipase (01/31/18 17:17) Urinalysis - C+S If Indicated (01/31/18 17:17) Influenzae A/B Antigen (01/31/18 17:17) Blood Culture (01/31/18 17:17) Pneumococcal Urinary Antigen (01/31/18 17:17) Legionella Urinary Antigen (01/31/18 17:17) Chest, Single Ap (01/31/18 17:17) Blood Glucose (01/31/18 17:17) Ecg Monitoring (01/31/18 17:17) Iv Access Insert/Monitor (01/31/18 17:17) Oximetry (01/31/18 17:17) Acetaminophen (Tylenol) (01/31/18 17:30) Sodium Chlor 0.9% 1000 Ml Inj (Ns 1000 M (01/31/18 17:17) Sodium Chlor 0.9% 1000 Ml Inj (Ns 1000 M (01/31/18 17:17) Methylprednisolone So Succ Inj (Solumedr (01/31/18 18:00) Albuterol Neb (Albuterol Neb) (01/31/18 18:00) Magnesium Sulfate 1 Gm Premix (Magnesium (01/31/18 18:00) Azithromycin Inj (Zithromax Inj) (01/31/18 18:15) Labs Laboratory Tests Test 6/14/18 17:40 White Blood Count 7.7 TH/MM3 Red Blood Count 3.59 MIL/MM3 Hemoglobin 10.8 GM/DL Hematocrit 34.3 % Mean Corpuscular Volume 95.8 FL Mean Corpuscular Hemoglobin 30.1 PG Mean Corpuscular Hemoglobin Concent 31.4 % Red Cell Distribution Width 13.6 % Platelet Count 199 TH/MM3 Mean Platelet Volume 7.9 FL Neutrophils (%) (Auto) 83.3 % Lymphocytes (%) (Auto) 9.5 % Monocytes (%) (Auto) 4.8 % Eosinophils (%) (Auto) 1.8 % Basophils (%) (Auto) 0.6 % Neutrophils # (Auto) 6.5 TH/MM3 Lymphocytes # (Auto) 0.7 TH/MM3 Monocytes # (Auto) 0.4 TH/MM3 Eosinophils # (Auto) 0.1 TH/MM3 Basophils # (Auto) 0.0 TH/MM3 CBC Comment DIFF FINAL Differential Comment Prothrombin Time 10.4 SEC Prothromb Time International Ratio 1.0 RATIO Activated Partial Thromboplast Time 25.8 SEC Blood Urea Nitrogen 32 MG/DL Creatinine 1.50 MG/DL Random Glucose 137 MG/DL Total Protein 8.2 GM/DL Albumin 3.3 GM/DL Calcium Level 8.9 MG/DL Alkaline Phosphatase 129 U/L Aspartate Amino Transf (AST/SGOT) 12 U/L Alanine Aminotransferase (ALT/SGPT) 15 U/L Total Bilirubin 0.2 MG/DL Sodium Level 140 MEQ/L Potassium Level 5.2 MEQ/L Chloride Level 97 MEQ/L Carbon Dioxide Level 41.8 MEQ/L Anion Gap 1 MEQ/L Estimat Glomerular Filtration Rate 48 ML/MIN Lactic Acid Level 1.6 mmol/L Lipase 290 U/L [facility] Medical Decision Making Medical Screen Exam Complete: Yes Emergency Medical Condition: Yes Medical Record Reviewed: Yes Differential Diagnosis Pneumonia versus pulmonary edema versus sepsis versus UTI versus Narrative Course Although CBC does not show any leukocytosis does show a left shift with an 83% neutrophilia, mild anemia of 10/34, and a normal platelet count of 189,000 Coagulation profile is within normal limits Electrolytes show hypercarbia which is consistent with chronic COPD without any anion gap. The patient's BUN and creatinine are consistent with prerenal azotemia with a BUN of 32 and a creatinine of 1.5 with a GFR 48. The patient due to the sepsis protocol has already been ordered to receive 2 L of normal saline Lactic acidosis is not present with a 1.6 level Liver function tests and pancreatic function tests all within normal limits. Chest x-ray read by radiologist as COPD with interstitial lung disease but without evidence of acute process I believe it prudent to have the patient admitted for COPD exacerbation with hypoxemia, as well as for further evaluation and IV antibiotic so that the patient does not develop any septic shock since the patient already meets sirs criteria Critical Care Narrative CRITICAL CARE NOTE: With evaluation of the patient, labs, EKG, receipt of radiologic studies, administration of medications, reevaluation the patient and discussion of the patient with the admitting physicians, the total critical care time was [45] minutes. Time to perform other separately billable procedures was not included in the critical care time. Sepsis Criteria SIRS Criteria (2 or more): Temp > 100.9 or < 96.8, Heart rate over 90 Criteria Outcome: Meets SIRS criteria Diagnosis Primary Impression: COPD with acute exacerbation Additional Impressions: SIRS (systemic inflammatory response syndrome) Prerenal azotemia Admitting Information Admitting Physician Requests: Observation Nikhil Lr MD Jan 31, 2018 17:17
[2018-01-31] MEDS ORDERED: ACETAMINOPHEN 325 MG TAB PO ONE (17:30)
[2018-01-31 17:58] LABS: AUTOMATED NEUTROPHIL # 6.5 TH/MM3 (1.8-7.7); BASOPHIL % 0.6 % (0.0-2.0); EOSINOPHIL # 0.1 TH/MM3 (0-0.4); EOSINOPHIL % 1.8 % (0.0-4.0); HEMATOCRIT 34.3 % (39.0-51.0); HEMOGLOBIN 10.8 GM/DL (13.0-17.0); LYMPH % 9.5 % (9.0-44.0); LYMPHOCYTE # 0.7 TH/MM3 (1.0-4.8); MEAN CELL VOLUME 95.8 FL (80.0-100.0); MEAN CORPUSCULAR HEMOGLOBIN 30.1 PG (27.0-34.0); MEAN CORPUSCULAR HGB CONC 31.4 % (32.0-36.0); MEAN PLATELET VOLUME 7.9 FL (7.0-11.0); MONO % 4.8 % (0.0-8.0); MONOCYTE # 0.4 TH/MM3 (0-0.9); NEUT % 83.3 % (16.0-70.0); PLATELET COUNT 199 TH/MM3 (150-450); RED BLOOD COUNT 3.59 MIL/MM3 (4.50-5.90); RED CELL DISTRIBUTION WIDTH 13.6 % (11.6-17.2); WHITE BLOOD COUNT 7.7 TH/MM3 (4.0-11.0)
[2018-01-31] MEDS ORDERED: methylPREDNISolone SOD SUCC 125 MG/2 ML VIAL IV PUSH ONE (18:00)
[2018-01-31] MEDS ORDERED: MAGNESIUM SULFATE 1 GM PREMIX 100 ML IV ONE (18:00)
--- NOTE | 2018-01-31 18:00 | RADRPT ---
EXAM DATE: 01/31/2018 5:42 PM EDT AGE/SEX: 57 years / Male INDICATIONS: Shortness of breath, fever, and fatigue. CLINICAL DATA: This is the patient's initial encounter. Patient reports that signs and symptoms have been present for 3 days and indicates a pain score of 0/10. MEDICAL/SURGICAL HISTORY: Chronic obstructive pulmonary disease. Stroke. Craniotomy. COMPARISON: [facility], CHEST SINGLE AP, 11/07/2017. . FINDINGS: Lungs are hyperinflated. Chronic interstitial lung changes are noted. There is no evidence of consolidating airspace disease. Heart and mediastinal structures are stable. Heart remains normal in size CONCLUSION: COPD with interstitial lung disease No evidence of acute process. Electronically signed by: Jorge Sy MD 01/31/2018 5:59 PM EDT
[2018-01-31 18:11] LABS: CHLORIDE 97 MEQ/L (98-107); SODIUM (NA) 140 MEQ/L (136-145)
[2018-01-31] MEDS: RESP: ALBUTEROL 2.5 MG/3 ML NEB (SCH) INH ×2 (18:12→18:13)
[2018-01-31 18:14] LABS: CALCIUM 8.9 MG/DL (8.5-10.1)
[2018-01-31 18:15] LABS: ALBUMIN 3.3 GM/DL (3.4-5.0); BICARBONATE 41.8 MEQ/L (21.0-32.0); BLOOD UREA NITROGEN 32 MG/DL (7-18); GLUCOSE,RANDOM 137 MG/DL (74-106)
[2018-01-31] MEDS ORDERED: AZITHROMYCIN INJ 500 MG in SODIUM CHLOR 0.9% 250 ML INJ 250 ML IV ONE (18:15)
[2018-01-31 18:17] LABS: ALT (GPT) 15 U/L (12-78); AST (GOT) 12 U/L (15-37)
[2018-01-31 18:18] LABS: GLOMERULAR FILTRATION RATE 48 ML/MIN (>89)
[2018-01-31 18:19] LABS: TOTAL BILIRUBIN ADULT 0.2 MG/DL (0.2-1.0); TOTAL PROTEIN 8.2 GM/DL (6.4-8.2)
[2018-01-31 18:20] LABS: ALKALINE PHOSPHATASE 129 U/L (45-117)
[2018-01-31 18:25] LABS: PROTHROMBIN TIME - PATIENT 10.4 SEC (9.8-11.6)
[2018-01-31] MEDS ORDERED: GLUCAGON 1 MG/ML VIAL OTHER PRN (19:15)
[2018-01-31] MEDS ORDERED: MORPHINE SULFATE 2 MG/ML SYRINGE IV PUSH PRN (19:15)
[2018-01-31] MEDS ORDERED: SODIUM CHLORIDE 0.9% FLUSH 10 ML FLUSH IV FLUSH PRN (19:15)
[2018-01-31] MEDS ORDERED: RESP: ALBUTEROL 2.5 MG/IPRATROPIUM 0.5 MG NEB (PRN) NEB (19:15)
[2018-01-31] MEDS ORDERED: BISACODYL 10 MG SUPP RECTAL PRN (19:15)
[2018-01-31] MEDS ORDERED: LACTULOSE SYRUP 20 GM/30 ML CUP PO PRN (19:15)
[2018-01-31] MEDS ORDERED: SENNOSIDES 8.6 MG TAB PO PRN (19:15)
[2018-01-31] MEDS ORDERED: MAGNESIUM HYDROXIDE SUSP 30 ML CUP PO PRN (19:15)
[2018-01-31] MEDS ORDERED: METOCLOPRAMIDE HCL 10 MG/2 ML VIAL IV PUSH PRN (19:15)
[2018-01-31] MEDS ORDERED: DEXTROSE 50% IN WATER 50 ML VIAL(D50) IV PUSH PRN (19:15)
[2018-01-31] MEDS ORDERED: ACETAMINOPHEN/HYDROcodone 325 MG/5 MG TAB PO PRN (19:15)
[2018-01-31] MEDS ORDERED: ACETAMINOPHEN 325 MG TAB PO PRN (19:15)
[2018-01-31] MEDS: RESP: ALBUTEROL 2.5 MG/IPRATROPIUM 0.5 MG NEB (SCH) NEB (20:20)
[2018-01-31] MEDS: SODIUM CHLOR 0.9% 1000 ML INJ 1,000 ML IV SCH (20:27)
[2018-01-31] MEDS: cefTRIAXone INJ 1,000 MG in SODIUM CHLORIDE 0.9% INJ 100 ML IV SCH (22:16)
[2018-01-31] MEDS: INSULIN ASPART SUPPLEMENTAL SCALE SQ SCH (22:16)
[2018-01-31] MEDS: guaiFENesin E.R. 600 MG TAB PO SCH (22:17)
[2018-01-31] MEDS: PHENYTOIN SODIUM 100 MG CAP PO SCH (22:17)
[2018-01-31] MEDS: ATORVASTATIN 10 MG TAB PO SCH (22:17)
[2018-01-31] MEDS: DOCUSATE SODIUM 50 MG/SENNA 8.6 MG TAB PO SCH (22:17)
[2018-01-31] MEDS: SODIUM CHLORIDE 0.9% FLUSH 10 ML FLUSH IV FLUSH SCH (22:51)
[2018-01-31] MEDS: BUDESONIDE-FORMOTEROL 160/4.5 MCG INHALER INH SCH (22:51)
[2018-01-31] MEDS: methylPREDNISolone SOD SUCC 40 MG/1 ML VIAL IV PUSH SCH (23:09)
[2018-02-01] VITALS (10 sets, daily range): BP systolic 132–182; BP diastolic 72–91; PULSE 82–102; RESP 18–23; TEMP 96.4–98.7; O2SAT 91–98
[2018-02-01] MEDS: methylPREDNISolone SOD SUCC 40 MG/1 ML VIAL IV PUSH SCH ×4 (04:43→23:43)
[2018-02-01] MEDS: PHENYTOIN SODIUM 100 MG CAP PO SCH ×3 (04:44→20:19)
[2018-02-01 05:06] LABS: AUTOMATED NEUTROPHIL # 6.5 TH/MM3 (1.8-7.7); BASOPHIL % 0.1 % (0.0-2.0); EOSINOPHIL % 0.1 % (0.0-4.0); HEMATOCRIT 32.6 % (39.0-51.0); HEMOGLOBIN 10.3 GM/DL (13.0-17.0); LYMPH % 6.5 % (9.0-44.0); LYMPHOCYTE # 0.4 TH/MM3 (1.0-4.8); MEAN CELL VOLUME 94.8 FL (80.0-100.0); MEAN CORPUSCULAR HEMOGLOBIN 29.9 PG (27.0-34.0); MEAN CORPUSCULAR HGB CONC 31.5 % (32.0-36.0); MEAN PLATELET VOLUME 8.4 FL (7.0-11.0); MONO % 0.4 % (0.0-8.0); NEUT % 92.9 % (16.0-70.0); PLATELET COUNT 184 TH/MM3 (150-450); RED BLOOD COUNT 3.44 MIL/MM3 (4.50-5.90); RED CELL DISTRIBUTION WIDTH 13.5 % (11.6-17.2); WHITE BLOOD COUNT 6.9 TH/MM3 (4.0-11.0)
[2018-02-01 05:08] LABS: CHLORIDE 98 MEQ/L (98-107); SODIUM (NA) 140 MEQ/L (136-145)
[2018-02-01 05:11] LABS: CALCIUM 8.9 MG/DL (8.5-10.1)
[2018-02-01 05:12] LABS: ALBUMIN 3.2 GM/DL (3.4-5.0); BICARBONATE 38.5 MEQ/L (21.0-32.0); BLOOD UREA NITROGEN 31 MG/DL (7-18); GLUCOSE,RANDOM 212 MG/DL (74-106)
[2018-02-01 05:15] LABS: ALT (GPT) 12 U/L (12-78); AST (GOT) 11 U/L (15-37); GLOMERULAR FILTRATION RATE 52 ML/MIN (>89)
[2018-02-01 05:17] LABS: TOTAL BILIRUBIN ADULT 0.2 MG/DL (0.2-1.0); TOTAL PROTEIN 7.8 GM/DL (6.4-8.2)
[2018-02-01 05:18] LABS: ALKALINE PHOSPHATASE 124 U/L (45-117)
[2018-02-01] MEDS: SODIUM CHLOR 0.9% 1000 ML INJ 1,000 ML IV SCH (06:37)
[2018-02-01] MEDS: RESP: ALBUTEROL 2.5 MG/IPRATROPIUM 0.5 MG NEB (SCH) NEB ×3 (07:24→19:39)
[2018-02-01] MEDS: INSULIN ASPART SUPPLEMENTAL SCALE SQ SCH ×4 (08:09→20:20)
[2018-02-01] MEDS: DILTIAZEM-CD 120 MG CAP ER PO SCH (08:09)
[2018-02-01] MEDS: guaiFENesin E.R. 600 MG TAB PO SCH ×2 (08:10→20:19)
[2018-02-01] MEDS: FUROSEMIDE 20 MG TAB PO SCH (08:10)
[2018-02-01] MEDS: DOCUSATE SODIUM 50 MG/SENNA 8.6 MG TAB PO SCH ×2 (08:10→20:19)
[2018-02-01] MEDS: BUDESONIDE-FORMOTEROL 160/4.5 MCG INHALER INH SCH ×2 (08:10→20:18)
[2018-02-01] MEDS: SODIUM CHLORIDE 0.9% FLUSH 10 ML FLUSH IV FLUSH SCH ×2 (08:10→20:18)
[2018-02-01] MEDS ORDERED: LOSARTAN 50 MG TAB PO SCH (09:00)
--- NOTE | 2018-02-01 11:10 | HHI.HP ---
[facility] Service [facility] Primary Care Physician Jean Pierre Verdugo MD Admission Diagnosis COPD EXAC WITH HYPOXEMIA , SIRS Diagnoses: (1) COPD with acute exacerbation (2) SIRS (systemic inflammatory response syndrome) Chief Complaint: Shortness of breath Cough Travel History International Travel<30 Days: No Contact w/Intl Traveler <30 Da: No Traveled to Known Affected Are: No Sepsis Criteria SIRS Criteria (2 or more): Heart rate over 90, RR > 20 or PaCO2 < 32 Sepsis Criteria (SIRS+source): Infect source susp/known History of Present Illness This is a pleasant 57-year-old male patient with a known medical history of hyperlipidemia, hypertension, COPD with home O2 who presented to the ED with complaints of worsening shortness of breath and cough. Patient states that yesterday he developed a productive cough with white colored sputum, increasing fatigue, diminished appetite and worsening shortness of breath especially with exertion. Patient states he uses home O2 at 3 L nasal cannula, states that he had increased this yesterday due to shortness of breath. Patient lives at home with his mom. 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 He is able to perform all ADLs independently. Patient denies any recent illness including fever, chills, chest pain, abdominal pain, nausea, vomiting, diarrhea or dysuria. Patient does follow with the bull rider, although unaware of bull rider name. Denies any recent antibiotic or steroid use. Was last seen by bull rider a week ago with no changes to his medicines. Patient did present to the ED 3 months ago for COPD and shortness of breath, was given antibiotics and steroids at that time. Symptoms did improve over the course of last [address] Verdugo. Review of Systems Constitutional: COMPLAINS OF: Fatigue, DENIES: Fever, Chills Eyes: DENIES: Diplopia Respiratory: COMPLAINS OF: Cough, Sputum production, Shortness of breath Cardiovascular: DENIES: Chest pain, Palpitations Gastrointestinal: DENIES: Abdominal pain, Black stools, Bloody stools, Constipation, Diarrhea, Nausea, Vomiting Musculoskeletal: DENIES: Joint pain Hematologic/lymphatic: DENIES: Bruising Immunologic/allergic: DENIES: Eczema Neurologic: DENIES: Abnormal gait Psychiatric: COMPLAINS OF: Anxiety Except as stated in HPI: all other systems reviewed are Neg Past Family Social History Past Medical History Diabetes mellitus type II Hypertension COPD History of seizures History of developmental delay History of CVA GERD Past Surgical History Brain aneurysm clipping 1990 Tooth extraction Reported Medications Active Azithromycin 250 Mg Tab 250 Mg PO DIRECTED Take 2 tabs (500 mg) on day 1 then 1 tab daily x 4 days. Inspirease Drug Delivery (Spacer/Device For Mdi) 1 Ea Mis 1 Ea .ROUTE DIRECTED Nebulizer 1 Mis Mis 1 Ea .ROUTE DIRECTED Perforomist Neb (Formoterol Fumarate) 20 Mcg/2 Ml Neb 1 Nebule INH BID Potassium Chloride ER (Potassium Chloride) 10 Meq Cap 10 Meq PO DAILY Dilantin (Phenytoin Extended) 100 Mg Cap 100 Mg PO Q8HR Furosemide 20 Mg Tab 20 Mg PO DAILY Reported Metformin (Metformin HCl) 500 Mg Tab 500 Mg PO DAILY With a meal Albuterol Neb (Albuterol Sulfate) 1.25 Mg/3 Ml Neb 2.5 Mg NEB Q4HR NEB PRN Losartan (Losartan Potassium) 50 Mg Tab 50 Mg PO DAILY Cartia Xt (Diltiazem ER 24 HR) 120 Mg Caper 120 Mg PO DAILY Atorvastatin (Atorvastatin Calcium) 10 Mg Tab 10 Mg PO HS Allergies: Coded Allergies: No Known Allergies (Unverified Adverse Reaction, Unknown, 01/31/18) Active Ordered Medications Current Medications Medications (Trade) Dose Ordered Sig/Cielo Route Start Time Stop Time Status Last Admin (D50w (Vial) Inj) 50 ml UNSCH PRN IV PUSH 01/31/18 19:15 (Glucagon Inj) 1 mg UNSCH PRN OTHER 01/31/18 19:15 (NovoLOG SUPPLEMENTAL SCALE) 1 ACHS SLIDING SCALE SQ 01/31/18 21:00 02/01/18 08:09 Ceftriaxone Sodium 1000 mg/ Sodium Chloride 100 ml @ 200 mls/hr Q24H IV 01/31/18 21:00 01/31/18 22:16 Azithromycin 500 mg/Sodium Chloride 250 ml @ 250 mls/hr Q24H IV 02/01/18 20:00 (SoluMEDROL INJ) 40 mg Q6HR IV PUSH 02/01/18 00:00 02/01/18 04:43 (Symbicort 160-4.5 Mcg Inh) 2 puff Q12HR INH 01/31/18 21:00 02/01/18 08:10 (Mucinex Er) 600 mg BID PO 01/31/18 21:00 02/01/18 08:10 (Duoneb Neb) 1 ampule Q2HR NEB PRN NEB 01/31/18 19:15 Sodium Chloride 1,000 ml @ 100 mls/hr Q10H IV 01/31/18 19:07 02/01/18 06:37 (NS Flush) 2 ml UNSCH PRN IV FLUSH 01/31/18 19:15 (NS Flush) 2 ml BID IV FLUSH 01/31/18 21:00 01/31/18 22:51 (Reglan Inj) 5 mg Q6H PRN IV PUSH 01/31/18 19:15 (Tylenol) 650 mg Q6H PRN PO 01/31/18 19:15 ([place] 5-325 Mg) 1 tab Q4H PRN PO 01/31/18 19:15 (Morphine Inj) 2 mg Q3H PRN IV PUSH 01/31/18 19:15 (Taylor-Colace) 1 tab BID PO 01/31/18 21:00 02/01/18 08:10 (Milk Of Magnesia Liq) 30 ml Q12H PRN PO 01/31/18 19:15 (Senokot) 17.2 mg Q12H PRN PO 01/31/18 19:15 (Dulcolax Supp) 10 mg DAILY PRN RECTAL 01/31/18 19:15 (Lactulose Liq) 30 ml DAILY PRN PO 01/31/18 19:15 (Lipitor) 10 mg HS PO 01/31/18 21:00 01/31/18 22:17 (Cardizem Cd) 120 mg DAILY PO 02/01/18 09:00 02/01/18 08:09 (Lasix) 20 mg DAILY PO 02/01/18 09:00 02/01/18 08:10 (Cozaar) 50 mg DAILY PO 02/01/18 09:00 02/01/18 08:09 (Dilantin) 100 mg Q8HR PO 01/31/18 22:00 02/01/18 04:44 (Duoneb Neb) 1 ampule Q6HR WHILE AWAKE NEB NEB 02/01/18 14:00 Family History Father had history of lung cancer. Mother is healthy. Social History States he smokes 1 pack per of cigarettes every other day since his teen years, states that he is trying to actively stop smoking. Denies any alcohol use. Does admit to daily marijuana use. Physical Exam Vital Signs Vital Signs Date Time Temp Pulse Resp B/P (MAP) Pulse Ox O2 Delivery O2 Flow Rate FiO2 02/01/18 08:59 96.5 92 20 182/82 (115) 92 02/01/18 07:26 92 Nasal Cannula 2.00 02/01/18 04:00 96.4 82 18 156/78 (104) 93 02/01/18 00:00 97.1 88 18 150/72 (98) 95 01/31/18 20:30 98 01/31/18 20:20 94 Nasal Cannula 3.00 01/31/18 20:11 01/31/18 20:00 97.9 97 18 122/58 (79) 94 01/31/18 18:58 98.9 101 20 111/56 (74) 93 Nasal Cannula 2.00 01/31/18 18:26 100.0 103 24 173/71 (105) 97 Aerosol Mask 01/31/18 18:20 103 24 173/71 (105) 97 Aerosol Mask 01/31/18 17:20 94 Nasal Cannula 4.00 01/31/18 17:19 Nasal Cannula 4.00 01/31/18 17:05 100.0 109 18 142/68 (92) 94 Physical Exam GENERAL: Well-developed, well-nourished patient in NAD. On supplemental O2 SKIN: Warm and dry. No rash. HEAD: Normocephalic. Atraumatic. EYES: Pupils equal and round. No scleral icterus. No injection or drainage. ENT: No nasal bleeding or discharge. Mucous membranes pink and moist. NECK: Supple. Trachea midline. CARDIOVASCULAR: Regular rate and rhythm. S1, S2 noted. No murmur appreciated. RESPIRATORY: No accessory muscle use. Rhonchi. Breath sounds equal bilaterally. GASTROINTESTINAL: Abdomen soft, non-tender, nondistended. Normoactive bowel sounds x4. MUSCULOSKELETAL: No obvious deformities. Extremities without clubbing, cyanosis , or edema. NEUROLOGICAL: Awake and alert. No obvious cranial nerve deficits. Motor grossly within normal limits. 5/5 muscle strength in bilateral upper and lower extremities. Normal speech. Laboratory Laboratory Tests Test 01/31/18 17:40 02/01/18 04:45 White Blood Count 7.7 6.9 Red Blood Count 3.59 3.44 Hemoglobin 10.8 10.3 Hematocrit 34.3 32.6 Mean Corpuscular Volume 95.8 94.8 Mean Corpuscular Hemoglobin 30.1 29.9 Mean Corpuscular Hemoglobin Concent 31.4 31.5 Red Cell Distribution Width 13.6 13.5 Platelet Count 199 184 Mean Platelet Volume 7.9 8.4 Neutrophils (%) (Auto) 83.3 92.9 Lymphocytes (%) (Auto) 9.5 6.5 Monocytes (%) (Auto) 4.8 0.4 Eosinophils (%) (Auto) 1.8 0.1 Basophils (%) (Auto) 0.6 0.1 Neutrophils # (Auto) 6.5 6.5 Lymphocytes # (Auto) 0.7 0.4 Monocytes # (Auto) 0.4 0.0 Eosinophils # (Auto) 0.1 0.0 Basophils # (Auto) 0.0 0.0 CBC Comment DIFF FINAL DIFF FINAL Differential Comment Prothrombin Time 10.4 Prothromb Time International Ratio 1.0 Activated Partial Thromboplast Time 25.8 Blood Urea Nitrogen 32 31 Creatinine 1.50 1.40 Random Glucose 137 212 Total Protein 8.2 7.8 Albumin 3.3 3.2 Calcium Level 8.9 8.9 Alkaline Phosphatase 129 124 Aspartate Amino Transf (AST/SGOT) 12 11 Alanine Aminotransferase (ALT/SGPT) 15 12 Total Bilirubin 0.2 0.2 Sodium Level 140 140 Potassium Level 5.2 5.0 Chloride Level 97 98 Carbon Dioxide Level 41.8 38.5 Anion Gap 1 4 Estimat Glomerular Filtration Rate 48 52 Lactic Acid Level 1.6 Lipase 290 Date/Time Source Procedure Growth Status 01/31/18 17:45 Blood Peripheral Aerobic Blood Culture Pending Received 01/31/18 17:45 Blood Peripheral Anaerobic Blood Culture Pending Received 01/31/18 17:40 Nasal Washing Influenza Types A,B Antigen (VIELKA) - Final NEGATIVE FOR FLU A AND B ANTIGEN.... Complete Result Diagram: 02/01/1844402/01/185 Imaging Last Impressions Chest X-Ray 01/31/18 0364 Signed Impressions: CONCLUSION: COPD with interstitial lung disease No evidence of acute process. Septic Shock Reassessment Septic shock perfusion: reassessment completed Caprini VTE Risk Assessment Caprini VTE Risk Assessment: No/Low Risk (score <= 1) Caprini Risk Assessment Model Point Value = 1 Point Value = 2 Point Value = 3 Point Value = 5 Age 41-60 Minor surgery BMI > 25 kg/m2 Swollen legs Varicose veins or History of unexplained or recurrent spontaneous Oral contraceptives or hormone replacement Sepsis (< 1 month) Serious lung disease, including pneumonia (< 1 month) Abnormal pulmonary function Acute myocardial infarction Congestive heart failure (< 1 month) History of inflammatory bowel disease Medical patient at bed rest Age 61-74 Arthroscopic surgery Major open surgery (> 45 min) Laparoscopic surgery (> 45 min) Malignancy Confined to bed (> 72 hours) Immobilizing plaster cast Central venous access Age >= 75 History of VTE Family history of VTE Factor V Leiden Prothrombin [id number] Lupus anticoagulant Anticardiolipin antibodies Elevated serum homocysteine Heparin-induced thrombocytopenia Other congenital or acquired thrombophilia Stroke (< 1 month) Elective arthroplasty Hip, pelvis, or leg fracture Acute spinal cord injury (< 1 month) Prophylaxis Regimen Total Risk Factor Score Risk Level Prophylaxis Regimen 0-1 Low Early ambulation 2 Moderate Order ONE of the following: *Sequential Compression Device (SCD) *Heparin 5000 units SQ BID 3-4 Higher Order ONE of the following medications: *Heparin 5000 units SQ TID *Enoxaparin/Lovenox 40 mg SQ daily (WT < 150 kg, CrCl > 30 mL/min) *Enoxaparin/Lovenox 30 mg SQ daily (WT < 150 kg, CrCl > 10-29 mL/min) *Enoxaparin/Lovenox 30 mg SQ BID (WT < 150 kg, CrCl > 30 mL/min) AND/OR *Sequential Compression Device (SCD) 5 or more Highest Order ONE of the following medications: *Heparin 5000 units SQ TID (Preferred with Epidurals) *Enoxaparin/Lovenox 40 mg SQ daily (WT < 150 kg, CrCl > 30 mL/min) *Enoxaparin/Lovenox 30 mg SQ daily (WT < 150 kg, CrCl > 10-29 mL/min) *Enoxaparin/Lovenox 30 mg SQ BID (WT < 150 kg, CrCl > 30 mL/min) AND *Sequential Compression Device (SCD) Assessment and Plan Problem List: (1) Acute exacerbation of chronic obstructive pulmonary disease (COPD) ICD Code: J44.1 - Acute exacerbation of chronic obstructive pulmonary disease ( COPD) Status: Acute (2) SIRS (systemic inflammatory response syndrome) ICD Code: R65.10 - Systemic inflammatory response syndrome (SIRS) of non- infectious origin without acute organ dysfunction Status: Acute (3) TERRIE (acute kidney injury) ICD Code: N17.9 - TERRIE (acute kidney injury) Status: Acute Assessment and Plan This is a pleasant 57-year-old male patient with a known medical history of hyperlipidemia, hypertension, COPD with home O2 who presented to the ED with complaints of worsening shortness of breath and cough. Patient states that yesterday he developed a productive cough with white colored sputum, increasing fatigue, diminished appetite and worsening shortness of breath especially with exertion. SIRS COPD with exacerbation presence of hypoxia Chronic home supplemental O2 use - Meets SIRS criteria with tachycardia and tachypnea. Was given 2 L NS bolus in ED. Continue IV fluids. - Chest x-ray reviewed showing COPD with interstitial lung disease. No evidence of acute process. - Patient placed on azithromycin and ceftriaxone, will continue. - Will continue IV steroids. Accu-Chek before meals at bedtime, sliding scale, cover as needed. Hyperglycemia secondary to steroid use. Tight glucose control. - Duo nebs scheduled and as needed for shortness of breath/wheezing. - Will continue Mucinex. - Supplemental O2 to keep oxygen saturations greater than 90%. Patient uses 3 L nasal cannula at home. Will continue. - Supportive care. Acute kidney injury: Creatinine 1.4 presentation. After review of patient's lab history baseline is roughly around 1.0. Continue IV fluids. Monitor BMP. Hypertension, chronic: We will continue home losartan. Monitor blood pressure trends. Hyperlipidemia, chronic: We will continue home statin. History of brain aneurysm and seizures: Continue Dilantin. Will check Dilantin level. DVT prophylaxis: SCDs. Physician Certification 2 Midnight Certification Type: Admission for Inpatient Services Order for Inpatient Services The services are ordered in accordance with Medicare regulations or non- Medicare payer requirements, as applicable. In the case of services not specified as inpatient-only, they are appropriately provided as inpatient services in accordance with the 2-midnight benchmark. Estimated LOS (days): 3 3 days is the estimated time the patient will need to remain in the hospital, assuming treatment plan goals are met and no additional complications. Post-Hospital Plan: Not yet determined Sruthi Cosby Feb 01, 2018 11:10
[2018-02-01 14:10] LABS: BILIRUBIN, URINE NEG (NEG); BLOOD, URINE TRACE (NEG); GLUCOSE,URINE 1000 OR GREATER mg/dL (NEG); KETONE, URINE NEG (NEG); NITRITE,URINE NEG (NEG); URINE COLOR YELLOW (YELLW/STRAW); URINE LEUKOCYTE ESTERASE NEG (NEG)
[2018-02-01 14:21] LABS: RBC, URINE 0-3 /hpf (0-3); WBC, URINE 0-2 /hpf (0-5)
[2018-02-01] MEDS ORDERED: AZITHROMYCIN INJ 500 MG in SODIUM CHLOR 0.9% 250 ML INJ 250 ML IV SCH (20:00)
[2018-02-01] MEDS: cefTRIAXone INJ 1,000 MG in SODIUM CHLORIDE 0.9% INJ 100 ML IV SCH (20:18)
[2018-02-01] MEDS: ATORVASTATIN 10 MG TAB PO SCH (20:19)
[2018-02-02] VITALS: BP 164/68; PULSE 91; RESP 20; TEMP 96.1; O2SAT 91
[2018-02-02 04:00] VITALS: BP 181/81; PULSE 87; RESP 20; TEMP 97.1; O2SAT 98
[2018-02-02] MEDS: PHENYTOIN SODIUM 100 MG CAP PO SCH (05:36)
[2018-02-02] MEDS: methylPREDNISolone SOD SUCC 40 MG/1 ML VIAL IV PUSH SCH (05:36)
[2018-02-02] MEDS ORDERED: cloNIDine HCL 0.1 MG TAB PO ONE (06:30)
[2018-02-02 07:14] LABS: BASOPHIL % 0.4 % (0.0-2.0); EOSINOPHIL % 0.1 % (0.0-4.0); HEMATOCRIT 32.5 % (39.0-51.0); HEMOGLOBIN 10.6 GM/DL (13.0-17.0); LYMPH % 6.1 % (9.0-44.0); LYMPHOCYTE # 0.7 TH/MM3 (1.0-4.8); MEAN CELL VOLUME 92.9 FL (80.0-100.0); MEAN CORPUSCULAR HEMOGLOBIN 30.2 PG (27.0-34.0); MEAN CORPUSCULAR HGB CONC 32.5 % (32.0-36.0); MEAN PLATELET VOLUME 8.6 FL (7.0-11.0); MONO % 2.9 % (0.0-8.0); MONOCYTE # 0.3 TH/MM3 (0-0.9); NEUT % 90.5 % (16.0-70.0); PLATELET COUNT 180 TH/MM3 (150-450); RED CELL DISTRIBUTION WIDTH 12.8 % (11.6-17.2)
[2018-02-02 07:35] LABS: BICARBONATE 40.5 MEQ/L (21.0-32.0); CALCIUM 9.5 MG/DL (8.5-10.1)
[2018-02-02 07:38] LABS: CREATININE 1.1 MG/DL (0.60-1.30)
[2018-02-02 07:50] VITALS: BP 166/77; PULSE 77; RESP 20; TEMP 97.2; O2SAT 99
[2018-02-02] MEDS: RESP: ALBUTEROL 2.5 MG/IPRATROPIUM 0.5 MG NEB (SCH) NEB (08:11)
[2018-02-02 08:12] VITALS: O2SAT 98
[2018-02-02] MEDS: SODIUM CHLORIDE 0.9% FLUSH 10 ML FLUSH IV FLUSH SCH (08:38)
[2018-02-02] MEDS: FUROSEMIDE 20 MG TAB PO SCH (08:38)
[2018-02-02] MEDS: DILTIAZEM-CD 120 MG CAP ER PO SCH (08:38)
[2018-02-02] MEDS: BUDESONIDE-FORMOTEROL 160/4.5 MCG INHALER INH SCH (08:38)
[2018-02-02] MEDS: DOCUSATE SODIUM 50 MG/SENNA 8.6 MG TAB PO SCH (08:38)
[2018-02-02] MEDS: INSULIN ASPART SUPPLEMENTAL SCALE SQ SCH ×2 (08:38→12:02)
[2018-02-02] MEDS: guaiFENesin E.R. 600 MG TAB PO SCH (08:38)
[2018-02-02] MEDS ORDERED: LOSARTAN 50 MG TAB PO SCH (09:00)
--- NOTE | 2018-02-02 09:25 | HHI.PR ---
Subjective Remarks Follow up COPD exacerbation. Patient seen and examined, lying in bed comfortably in nad. No shortness of breath. No change overnight, no reports of any acute events overnight. TERRIE improved. Afebrile. VSS. Will DC home to follow up with PCP. Continue home O2. Objective Vitals Vital Signs Date Time Temp Pulse Resp B/P (MAP) Pulse Ox O2 Delivery O2 Flow Rate FiO2 02/02/18 08:48 91 Nasal Cannula 3.50 02/02/18 08:47 89 Nasal Cannula 3.00 02/02/18 08:12 98 Nasal Cannula 4.00 02/02/18 07:50 97.2 77 20 166/77 (106) 99 02/02/18 04:00 97.1 87 20 181/81 (114) 98 02/02/18 00:00 96.1 91 20 164/68 (100) 91 02/01/18 20:00 98.7 98 20 176/91 (119) 91 02/01/18 19:40 95 Nasal Cannula 3.00 02/01/18 16:25 97.4 92 21 167/76 (106) 98 02/01/18 11:56 98.2 102 23 132/80 (97) 93 02/01/18 11:53 91 Nasal Cannula 4.00 I/O 02/01/18 02/01/18 02/01/18 02/02/18 02/02/18 02/02/18 07:00 15:00 23:00 07:00 15:00 23:00 Intake Total 1240 ml 580 ml 480 ml Output Total 800 ml 900 ml 1500 ml Balance 440 ml -320 ml -1020 ml Intake Oral 240 ml 480 ml 480 ml IV Total 1000 ml 100 ml Output Urine Total 800 ml 900 ml 1500 ml # Bowel Movements 0 0 Result Diagram: 02/02/18 0646 02/02/18 0646 Imaging Last Impressions Chest X-Ray 01/31/18 8977 Signed Impressions: CONCLUSION: COPD with interstitial lung disease No evidence of acute process. Objective Remarks GENERAL: Well-developed, well-nourished patient in NAD. On supplemental O2 SKIN: Warm and dry. No rash. HEAD: Normocephalic. Atraumatic. EYES: Pupils equal and round. No scleral icterus. No injection or drainage. ENT: No nasal bleeding or discharge. Mucous membranes pink and moist. NECK: Supple. Trachea midline. CARDIOVASCULAR: Regular rate and rhythm. S1, S2 noted. No murmur appreciated. RESPIRATORY: No accessory muscle use. Breath sounds clear to auscultation. Breath sounds equal bilaterally. GASTROINTESTINAL: Abdomen soft, non-tender, nondistended. Normoactive bowel sounds x4. MUSCULOSKELETAL: No obvious deformities. Extremities without clubbing, cyanosis , or edema. NEUROLOGICAL: Awake and alert. No obvious cranial nerve deficits. Motor grossly within normal limits. 5/5 muscle strength in bilateral upper and lower extremities. Normal speech. A/P Problem List: (1) Acute exacerbation of chronic obstructive pulmonary disease (COPD) ICD Code: J44.1 - Acute exacerbation of chronic obstructive pulmonary disease ( COPD) Status: Acute (2) SIRS (systemic inflammatory response syndrome) ICD Code: R65.10 - Systemic inflammatory response syndrome (SIRS) of non- infectious origin without acute organ dysfunction Status: Acute (3) TERRIE (acute kidney injury) ICD Code: N17.9 - TERRIE (acute kidney injury) Status: Acute Assessment and Plan This is a pleasant 57-year-old male patient with a known medical history of hyperlipidemia, hypertension, COPD with home O2 who presented to the ED with complaints of worsening shortness of breath and cough. Patient states that yesterday he developed a productive cough with white colored sputum, increasing fatigue, diminished appetite and worsening shortness of breath especially with exertion. SIRS. Resolved. COPD with exacerbation presence of hypoxia. Exacerbation improved. Chronic home supplemental O2 use. Back to baseline. - Met SIRS criteria with tachycardia and tachypnea. Was given 2 L NS bolus in ED. Was continued on IVF, now tolerated PO intake and fluids. Will DC. - Chest x-ray reviewed showing COPD with interstitial lung disease. No evidence of acute process. - Patient placed on azithromycin and ceftriaxone, will continue upon discharge. - On IV steroids. Accu-Chek before meals at bedtime, sliding scale, covered as needed. Patient blood sugars elevated secondary to steroids. Will wean off, continue 5 days upon discharge. - Duo nebs scheduled and as needed for shortness of breath/wheezing. - Will continue Mucinex. Rx written. - Supplemental O2 to keep oxygen saturations greater than 90%. Patient uses 3 L nasal cannula at home. Will continue. - Supportive care. Acute kidney injury: Creatinine 1.4 presentation. Improved to 1.1 After review of patient's lab history baseline is roughly around 1.0. Continue IV fluids. Monitor BMP. Hypertension, chronic: Will continue home losartan and increase dose to 100 mg PO daily due to elevated BP. Have patient follow up with PCP upon DC for management of his hypertension. Hyperlipidemia, chronic: We will continue home statin. History of brain aneurysm and seizures: Continue Dilantin. Dilantin level low. DVT prophylaxis: SCDs. Discharge patient to home. Condition on discharge: Improved. Diabetic diet as tolerated. Ad [place] activity. Rx written: See discharge instructions. Follow-up with primary care physician. Sruthi Cosby Feb 02, 2018 09:25
[2018-02-02] MEDS ORDERED: Albuterol-Ipratropium Neb NEB (09:29)
[2018-02-02] MEDS ORDERED: Budeson-Formot 160-4.5 Mcg Inh INH (09:29)
[2018-02-02] MEDS ORDERED: guaiFENesin ER PO (09:29)
[2018-02-02] MEDS ORDERED: PRED20 PO (09:29)
[2018-02-02] MEDS ORDERED: COZA50TA PO (09:30)
--- NOTE | 2018-02-02 09:30 | HHI.DCPOC ---
Discharge Care Plan Diagnosis: (1) Acute exacerbation of chronic obstructive pulmonary disease (COPD) (2) TERRIE (acute kidney injury) (3) Hypertension Goals to Promote Your Health * To prevent worsening of your condition and complications * To maintain your health at the optimal level Directions to Meet Your Goals Take your medications as prescribed Follow your dietary instruction Follow activity as directed Keep your appointments as scheduled Take your immunizations and boosters as scheduled If your symptoms worsen call your PCP, if no PCP go to Urgent Care Center or Emergency Room Smoking is Dangerous to Your Health. Avoid second hand smoke Call the 24-hour hour crisis hotline for domestic abuse at Sruthi Cosby Feb 02, 2018 09:30
[2018-02-02] MEDS ORDERED: methylPREDNISolone SOD SUCC 40 MG/1 ML VIAL IV PUSH SCH (18:00)
== END 2018-02-02 13:31 | disposition home or self-care (01) | DRG 191 ==
LOC: PHED 17:02 → PHEDA 19:02 → PH3A 20:03
PROVIDERS: ADMIT Hospitalist; ATTEND Hospitalist
DX: J44.1 Chronic obstructive pulmonary disease with (acute) exacerbation (principal); R65.10 Systemic inflammatory response syndrome (SIRS) of non-infectious origin without acute organ dysfunction; N17.9 Acute kidney failure, unspecified; E11.65 Type 2 diabetes mellitus with hyperglycemia; Z79.84 Long term (current) use of oral hypoglycemic drugs; R56.9 Unspecified convulsions; I10 Essential (primary) hypertension; R09.02 Hypoxemia; E78.5 Hyperlipidemia, unspecified; Z86.79 Personal history of other diseases of the circulatory system; I69.811 Memory deficit following other cerebrovascular disease; R62.50 Unspecified lack of expected normal physiological development in childhood; K21.9 Gastro-esophageal reflux disease without esophagitis; F17.210 Nicotine dependence, cigarettes, uncomplicated; F12.90 Cannabis use, unspecified, uncomplicated
CPT/HCPCS: 71045; 80048; 80053; 80185; 81001; 82948; 83605; 83690; 85025; 85610; 85730; 87040; 87804; 94640; 94664; 94667; 94668; 96365; 96375; J0456; J0696; J1815; J2920; J2930; J3475; J7030; J7050; J7613